=== PATIENT | male | born 1955 | race African-American/Black ===

== ENCOUNTER 2017-07-05 16:34 | Emergency (ER) | payer MEDICAID ==
[~2017-07-05] VITALS: Ht 188 cm; Wt 110.0 kg
[2017-07-05] MEDS ORDERED: LABETALOL 5MG/ML, 20ML IVPush ONE (17:00)
[2017-07-05] MEDS ORDERED: SODIUM CHLORIDE 0.9% 1,000ML IV ONE (17:00)
[2017-07-05] MEDS ORDERED: SODIUM CHLORIDE FLUSH 10ML SYR IVF ONE (17:00)
[2017-07-05] MEDS ORDERED: ONDANSETRON 2MG/ML, 2ML IVPush ONE (17:00)
[2017-07-05 17:13] LABS: HEMATOCRIT 44.9 % (39.2-51.8); HEMOGLOBIN 14.6 g/dL (13.7-18.0); WHITE BLOOD COUNT 7.5 x10^3/uL (3.4-10)
[2017-07-05] MEDS ORDERED: ONDANSETRON 2MG/ML, 2ML ONE (17:21)
[2017-07-05] MEDS ORDERED: LABETALOL 5MG/ML, 20ML ONE (17:21)
[2017-07-05] MEDS ORDERED: MORPHINE SULFATE 4 MG/ML, 1ML ONE ×2 (17:22→18:44)
[2017-07-05] MEDS: MORPHINE SULFATE 4 MG/ML, 1ML IVPush PRN ×2 (17:29→18:48)
[2017-07-05 17:47] LABS: BLOOD UREA NITROGEN 11 mg/dL (7-18)
[2017-07-05 17:52] LABS: ASPARTATE AMINO TRANSFERASE 23 U/L (15-37)
[2017-07-05 17:57] LABS: ANISOCYTOSIS 1+; HYPOCHROMIA 1+; POIKILOCYTOSIS 1+; POLYCHROMASIA 1+
[2017-07-05 20:11] VITALS: BP 171/91
== END 2017-07-05 20:14 | disposition home or self-care (01) ==
LOC: ED 20:08
DX: M51.16 Intervertebral disc disorders with radiculopathy, lumbar region (principal); I10 Essential (primary) hypertension; G89.29 Other chronic pain; F17.200 Nicotine dependence, unspecified, uncomplicated; Z91.14 Patient's other noncompliance with medication regimen; Z98.1 Arthrodesis status
CPT/HCPCS: 36415; 71020; 72110; 80053; 85025; 93005; 96361; 96374; 96375; 96376; 99285; J2405; J7030

== ENCOUNTER 2018-11-08 02:17 | Inpatient (IN) | payer MEDICAID ==
[~2018-11-08] VITALS: Ht 188 cm; Wt 124.6 kg
[2018-11-08] MEDS ORDERED: NITROGLYCERIN/D5W PMX 250 ML IV SCH (02:24)
[2018-11-08] MEDS ORDERED: NITROGLYCERIN/D5W PMX 250 ML ONE ×2 (02:27→02:31)
[2018-11-08] MEDS ORDERED: ALBUTEROL/IPRATROPIUM 2.5MG/0.5MG, 3 ML NPPB ONE (02:30)
[2018-11-08] MEDS ORDERED: FUROSEMIDE 40 MG/4 ML IVP ONE (02:30)
[2018-11-08] MEDS ORDERED: SODIUM CHLORIDE FLUSH 10ML SYR IVF ONE (02:30)
[2018-11-08] MEDS ORDERED: methylPREDNISolone SOD SUCC 125 MG/2 ML IVP ONE (02:30)
[2018-11-08] MEDS ORDERED: methylPREDNISolone SOD SUCC 125 MG/2 ML ONE (02:37)
--- NOTE | 2018-11-08 02:40 | NUR ---
HAL RN: LATE ENTRY. 63 Y/O MALE PRESENTS TO THE ER BY BLANKA FOR RESPIRATORY DISTRESS. PT REPORTS WORSENING SOB OVER THE PAST FEW DAYS. PT IS IN SEVERE DISTRESS, ONLY ABLE TO SPEAK 2 WORD SENTENCES, ACCESSORY MUSCLE USE PRESENT. PT REPORTS A HISTORY OF CHF AND ASTHMA. WHEEZING PRESENT THROUGHOUT ALL LUNG BOOGIE. SEVERE 4+ PITTING EDEMA NOTED TO EXTREMITIES BILATERALLY TO THE HIP LEVEL. ABD ROUNDED AND SWOLLEN, FACE EDEMETOUS ACCORDING TO PT. EMS ESTABLISHED IV AND ADMINISTERED O2 VIA NC @ 6 LPM. O2 SAT 98%. HISTORY LIMITED DUE TO PT'S DISTRESS. DR. BARBA AT BEDSIDE UPON PT ARRIVAL. MONITORING EQUIPMENT APPLIED. PT HYPERTENSIVE AT 188/142, TACHYCARDIC AT 110. SINUS TACH ON THE MONITOR WITH NO ECTOPY OR ST CHANGES PRESENT. RESPIRATORY AT BEDSIDE WELL. REPORT TO PRIMARY RNALIN.
[2018-11-08] MEDS ORDERED: FUROSEMIDE 40 MG/4 ML ONE (02:43)
[2018-11-08] MEDS ORDERED: ALBUTEROL/IPRATROPIUM 2.5MG/0.5MG, 3 ML ONE (02:46)
[2018-11-08] MEDS ORDERED: ALBUTEROL SULFATE 2.5 MG/3 ML ONE (02:46)
[2018-11-08 02:57] LABS: MEAN CORPUSCULAR HEMOGLOBIN 25.6 pg (27.5-34.5); MEAN CORPUSCULAR HGB CONC 31.1 g/dL (33.2-36.2); MEAN CORPUSCULAR VOLUME 82.3 fL (81-97); MEAN PLATELET VOLUME 7.8 fL (7.4-10.4); PLATELET COUNT 222 x10^3/uL (130-400); RED BLOOD COUNT 4.31 x10^6/uL (4.38-5.82); RED CELL DISTRIBUTION WIDTH 25.4 % (9.4-14.8)
[2018-11-08 03:02] LABS: ALANINE AMINOTRANSFERASE 31 U/L (12-78); ALBUMIN 2.9 g/dL (3.4-5.0); ANION GAP 7 mmol/L (5-15); CALCIUM 8.5 mg/dL (8.5-10.1); CHLORIDE 114 mmol/L (98-107); CREATININE 1.44 mg/dL (0.7-1.3)
--- NOTE | 2018-11-08 03:04 | NUR ---
NITRO TITRATED PER ORDER. PER MD LEAVE AT 100MCG/MIN AT THIS TIME.
[2018-11-08 03:06] LABS: ALKALINE PHOSPHATASE 92 U/L (45-117); BILIRUBIN,TOTAL 0.5 mg/dL (0.2-1.0); TOTAL PROTEIN 7.5 g/dL (6.4-8.2); TROPONIN I 0.057 ng/mL (0.000-0.045)
[2018-11-08] MEDS ORDERED: MORPHINE SULFATE 4 MG/ML, 1ML ONE ×2 (03:13→04:03)
[2018-11-08 03:16] LABS: MD YES
[2018-11-08 03:19] LABS: ANISOCYTOSIS 1+; EOS#(MANUAL) 0.13 x10^3/uL (0.0-0.4); EOS% (MANUAL) 2 % (1-7); LYMPH#(MANUAL) 1.13 x10^3/uL (1-3.4); LYMPHS% (MANUAL) 18 % (22-44); MONOS#(MANUAL) 0.19 x10^3/uL (0.3-2.7); MONOS% (MANUAL) 3 % (2-9); SEG#(MANUAL) 4.85 x10^3/uL (1.8-6.8); SEGS% (MANUAL) 77 % (42-75)
[2018-11-08 03:20] LABS: <PLATELET ESTIMATE> ADEQUATE; <PLT MORPHOLOGY> NORMAL PLT MORPH; HYPOCHROMIA 1+; OVALOCYTES 1+; POLYCHROMASIA 1+
[2018-11-08] MEDS ORDERED: ALBUTEROL SULFATE 2.5 MG/3 ML NPPB ONE ×2 (03:30→04:00)
[2018-11-08] MEDS ORDERED: MORPHINE SULFATE 4 MG/ML, 1ML IVPush ONE ×2 (03:30→04:30)
--- NOTE | 2018-11-08 03:41 | NUR ---
PT NOW MORE ALERT AND COMMUNICATING BETTER. PT NOW WITH 3-4 WORD SENTENCES. RESP DISTRESS HAS NOTABLY DECREASED HOWEVER AT THIS TIME IS MODERATE WITH THE ASSISTANCE OF BIPAP.
[2018-11-08 03:48] LABS: INTERNATIONAL NORMALIZED RATIO 1.26 (0.93-1.1); PROTHROMBIN TIME 13.2 Seconds (9.6-11.5)
--- NOTE | 2018-11-08 04:07 | NUR ---
MED REC ATTEMPTED. PT UNSURE OF NAMES OF MEDS.
[2018-11-08] MEDS ORDERED: NITROGLYCERIN 0.4 MG BOTTLE (25 TABS) SL PRN (05:30)
[2018-11-08] MEDS ORDERED: LABETALOL 5MG/ML, 20ML IVPush PRN (05:30)
[2018-11-08] MEDS ORDERED: DOCUSATE 100 MG CAPSULE PO PRN (05:30)
[2018-11-08] MEDS ORDERED: ONDANSETRON ODT 4 MG PO PRN (05:30)
[2018-11-08] MEDS ORDERED: POLYETHYLENE GLYCOL 17 GM PACKET PO PRN (05:30)
[2018-11-08] MEDS ORDERED: morphine SULFATE 10 MG/ML, 1ML IVPush PRN (05:30)
[2018-11-08] MEDS ORDERED: ONDANSETRON 2MG/ML, 2ML IVPush PRN (05:30)
[2018-11-08] MEDS ORDERED: BISACODYL 10 MG SUPP PR PRN (05:30)
[2018-11-08] MEDS ORDERED: GABAPENTIN 300 MG CAPSULE PO PRN (05:30)
[2018-11-08] MEDS ORDERED: PROMETHAZINE 25 MG/ML, 1ML IM PRN (05:30)
[2018-11-08] MEDS: HEPARIN 5,000 UNITS/ML, 1ML SQ SCH ×2 (05:39→15:15)
[2018-11-08] MEDS: OXYcodone IR 5MG TABLET PO PRN (05:39)
[2018-11-08] MEDS: hydrALAzine 20 MG/ML, 1ML IVPush PRN ×2 (05:49→11:02)
[2018-11-08] MEDS: ALBUTEROL/IPRATROPIUM 2.5MG/0.5MG, 3 ML NPPB SCH ×5 (06:00→23:01)
[2018-11-08] MEDS ORDERED: ASPIRIN 325 MG TABLET EC PO SCH (06:00)
[2018-11-08] MEDS ORDERED: ALBUTEROL/IPRATROPIUM 2.5MG/0.5MG, 3 ML NPPB PRN (06:00)
[2018-11-08 07:12] LABS: FREE T4 (FREE THYROXINE) 1.27 ng/dL (0.76-1.46); THYROID STIMULATING HORMONE 1.12 mIU/L (0.358-3.740)
[2018-11-08 07:28] LABS: HEMOGLOBIN A1C 5.6 % (4.2-6.3)
[2018-11-08] MEDS ORDERED: FUROSEMIDE 40 MG/4 ML IV SCH (07:30)
[2018-11-08 08:59] LABS: MICROSCOPIC AUTO
[2018-11-08 09:02] LABS: CULTURE INDICATED? YES
[2018-11-08] MEDS: FAMOTIDINE 20 MG/2 ML IVPush SCH ×2 (09:15→20:18)
[2018-11-08] MEDS: methylPREDNISolone SOD SUCC 125 MG/2 ML IVPush SCH ×3 (09:18→18:24)
[2018-11-08 09:25] LABS: TROPONIN I 0.045 ng/mL (0.000-0.045)
[2018-11-08 10:01] LABS: TROPONIN I 0.045 ng/mL (0.000-0.045)
[2018-11-08] MEDS: DOXYCYCLINE 100 MG in DEXTROSE 5% 250 ML IV SCH (12:50)
[2018-11-08] MEDS: CEFTRIAXONE PMX 2GM/50ML 50 ML IVPB SCH (12:50)
[2018-11-08 14:19] LABS: TROPONIN I 0.034 ng/mL (0.000-0.045)
[2018-11-08] MEDS: SPIRONOLACTONE 25 MG TABLET PO SCH (15:15)
[2018-11-08] MEDS: CARVEDILOL 6.25 MG TABLET PO SCH ×2 (15:16→18:25)
[2018-11-08 15:23] LABS: AMPHETAMINE SCREEN, URINE Negative (Negative); BARBITURATE SCREEN, URINE Negative (Negative); BENZODIAZEPINE SCREEN, URINE Negative (Negative); CANNABINOID SCREEN, URINE Negative (Negative); COCAINE SCREEN, URINE Negative (Negative); METHADONE SCREEN, URINE Negative (Negative); OPIATE SCREEN, URINE Positive (Negative)
[2018-11-08 19:09] LABS: RAPID INFLUENZA A Negative (Negative); RAPID INFLUENZA B Negative (Negative)
[2018-11-08] MEDS: FUROSEMIDE 40 MG/4 ML IV SCH (22:21)
[2018-11-09] MEDS: HEPARIN 5,000 UNITS/ML, 1ML SQ SCH ×4 (00:14→23:56)
[2018-11-09] MEDS: methylPREDNISolone SOD SUCC 125 MG/2 ML IVPush SCH ×3 (00:14→11:37)
[2018-11-09] MEDS: DOXYCYCLINE 100 MG in DEXTROSE 5% 250 ML IV SCH ×3 (00:15→23:56)
[2018-11-09] MEDS: ALBUTEROL/IPRATROPIUM 2.5MG/0.5MG, 3 ML NPPB SCH ×8 (02:00→19:13)
[2018-11-09 04:00] VITALS: BP 157/93
[2018-11-09 04:34] LABS: ALANINE AMINOTRANSFERASE 27 U/L (12-78); ALBUMIN 2.7 g/dL (3.4-5.0); ANION GAP 7 mmol/L (5-15); CALCIUM 8.4 mg/dL (8.5-10.1); CHLORIDE 111 mmol/L (98-107); CREATININE 1.55 mg/dL (0.7-1.3)
[2018-11-09 04:36] LABS: ALKALINE PHOSPHATASE 49 U/L (45-117); BILIRUBIN,TOTAL 0.4 mg/dL (0.2-1.0); CHOL/HDL RATIO 2.2; CHOLESTEROL, TOTAL 90 mg/dL (140-239); HDL CHOL % 46 % (26-37); HDL CHOLESTEROL (DIRECT) 41 mg/dL (40-60); LDL CHOLESTEROL,CALCULATED 40 mg/dL (54-169); TOTAL PROTEIN 6.9 g/dL (6.4-8.2); TRIGLYCERIDES 45 mg/dL (50-200); VLDL CHOLESTEROL 9 mg/dL (0-25)
[2018-11-09 04:42] LABS: MEAN CORPUSCULAR HEMOGLOBIN 25.5 pg (27.5-34.5); MEAN CORPUSCULAR HGB CONC 31.3 g/dL (33.2-36.2); MEAN CORPUSCULAR VOLUME 81.5 fL (81-97); MEAN PLATELET VOLUME 7.7 fL (7.4-10.4); PLATELET COUNT 227 x10^3/uL (130-400); RED BLOOD COUNT 4.14 x10^6/uL (4.38-5.82); RED CELL DISTRIBUTION WIDTH 25.1 % (9.4-14.8)
[2018-11-09] MEDS: CARVEDILOL 6.25 MG TABLET PO SCH ×2 (05:42→17:29)
[2018-11-09] MEDS: ASPIRIN 81 MG TABLET EC PO SCH (05:42)
[2018-11-09] MEDS: FUROSEMIDE 40 MG/4 ML IV SCH (05:42)
[2018-11-09 05:47] LABS: MD YES
[2018-11-09 05:48] LABS: ANISOCYTOSIS 1+; BAND#(MANUAL) 0.07 x10^3/uL; BANDS%(MANUAL) 1 % (0-7); HYPOCHROMIA 1+; LYMPH#(MANUAL) 0.49 x10^3/uL (1-3.4); LYMPHS% (MANUAL) 7 % (22-44); MONOS#(MANUAL) 0.14 x10^3/uL (0.3-2.7); MONOS% (MANUAL) 2 % (2-9); SEGS% (MANUAL) 90 % (42-75)
[2018-11-09 05:49] LABS: <PLATELET ESTIMATE> ADEQUATE; <PLT MORPHOLOGY> NORMAL PLT MORPH; OVALOCYTES 1+; POLYCHROMASIA 1+
[2018-11-09] MEDS: FAMOTIDINE 20 MG/2 ML IVPush SCH ×2 (08:52→20:29)
[2018-11-09] MEDS: SPIRONOLACTONE 25 MG TABLET PO SCH (08:53)
[2018-11-09] MEDS: CEFTRIAXONE PMX 2GM/50ML 50 ML IVPB SCH (09:40)
[2018-11-09] MEDS ORDERED: CARVEDILOL 6.25 MG TABLET PO ONE (10:00)
[2018-11-09] MEDS ORDERED: SODIUM CHLORIDE 0.9% IV SCH (10:00)
[2018-11-09] MEDS ORDERED: FUROSEMIDE IV SCH (10:00)
[2018-11-09] MEDS: ACETAMINOPHEN 325 MG TABLET PO PRN (11:37)
[2018-11-09] MEDS: methylPREDNISolone SOD SUCC 40 MG/ML IVPush SCH (17:28)
[2018-11-09] MEDS: FUROSEMIDE 100 MG in SODIUM CHLORIDE 0.9% 90 ML IV SCH (19:41)
[2018-11-09] MEDS: OXYcodone IR 5MG TABLET PO PRN (20:28)
[2018-11-10] MEDS: methylPREDNISolone SOD SUCC 40 MG/ML IVPush SCH ×3 (00:07→12:15)
[2018-11-10 04:00] VITALS: BP 127/88
[2018-11-10] MEDS: FUROSEMIDE 100 MG in SODIUM CHLORIDE 0.9% 90 ML IV SCH (04:07)
[2018-11-10 04:38] LABS: ALBUMIN 2.7 g/dL (3.4-5.0); CALCIUM 8.7 mg/dL (8.5-10.1); CHLORIDE 109 mmol/L (98-107)
[2018-11-10 04:46] LABS: ALANINE AMINOTRANSFERASE 24 U/L (12-78); ALKALINE PHOSPHATASE 70 U/L (45-117); ANION GAP 8 mmol/L (5-15); BILIRUBIN,TOTAL 0.3 mg/dL (0.2-1.0); CREATININE 1.73 mg/dL (0.7-1.3); TOTAL PROTEIN 6.9 g/dL (6.4-8.2)
[2018-11-10 05:01] LABS: MEAN CORPUSCULAR HEMOGLOBIN 25.2 pg (27.5-34.5); MEAN CORPUSCULAR HGB CONC 30.8 g/dL (33.2-36.2); MEAN CORPUSCULAR VOLUME 82.1 fL (81-97); MEAN PLATELET VOLUME 7.8 fL (7.4-10.4); PLATELET COUNT 207 x10^3/uL (130-400); RED BLOOD COUNT 3.98 x10^6/uL (4.38-5.82); RED CELL DISTRIBUTION WIDTH 24.7 % (9.4-14.8)
[2018-11-10 05:35] LABS: MD YES
[2018-11-10 05:37] LABS: ANISOCYTOSIS 1+; HYPOCHROMIA 1+; LYMPH#(MANUAL) 0.34 x10^3/uL (1-3.4); LYMPHS% (MANUAL) 5 % (22-44); MONOS#(MANUAL) 0.27 x10^3/uL (0.3-2.7); MONOS% (MANUAL) 4 % (2-9); POLYCHROMASIA 1+; SEGS% (MANUAL) 91 % (42-75)
[2018-11-10 05:38] LABS: <PLATELET ESTIMATE> ADEQUATE; <PLT MORPHOLOGY> NORMAL PLT MORPH; OVALOCYTES 1+
[2018-11-10] MEDS: ASPIRIN 81 MG TABLET EC PO SCH (06:27)
[2018-11-10] MEDS: CARVEDILOL 6.25 MG TABLET PO SCH ×2 (06:27→18:29)
[2018-11-10] MEDS: ALBUTEROL/IPRATROPIUM 2.5MG/0.5MG, 3 ML NPPB SCH ×4 (06:51→20:00)
[2018-11-10] MEDS: HEPARIN 5,000 UNITS/ML, 1ML SQ SCH ×2 (07:52→16:55)
[2018-11-10] MEDS: SPIRONOLACTONE 25 MG TABLET PO SCH (09:17)
[2018-11-10] MEDS: CEFTRIAXONE PMX 2GM/50ML 50 ML IVPB SCH (09:17)
[2018-11-10] MEDS: FAMOTIDINE 20 MG TABLET PO SCH ×2 (09:17→20:59)
[2018-11-10] MEDS: FUROSEMIDE 40 MG/4 ML IV SCH ×2 (09:18→18:29)
[2018-11-10 11:40] VITALS: BP 127/81
[2018-11-10] MEDS: DOXYCYCLINE 100 MG in DEXTROSE 5% 250 ML IV SCH (12:16)
[2018-11-10 12:56] VITALS: BP 124/79
[2018-11-10] MEDS: OXYcodone IR 5MG TABLET PO PRN (14:57)
[2018-11-10 18:31] VITALS: BP 142/93
[2018-11-10 20:58] VITALS: BP 129/91
[2018-11-11] MEDS: DOXYCYCLINE 100 MG in DEXTROSE 5% 250 ML IV SCH ×2 (00:05→12:33)
[2018-11-11] MEDS: HEPARIN 5,000 UNITS/ML, 1ML SQ SCH ×3 (00:05→15:29)
[2018-11-11 00:13] VITALS: BP 125/79
[2018-11-11 05:39] LABS: ANION GAP 10 mmol/L (5-15); CALCIUM 8.4 mg/dL (8.5-10.1); CHLORIDE 108 mmol/L (98-107); CREATININE 1.93 mg/dL (0.7-1.3)
[2018-11-11 05:44] VITALS: BP 145/83
[2018-11-11 05:44] LABS: % IRON SATURATION 4 % (20-55); IRON LEVEL 15 mcg/dL (65-175); TOTAL IRON BINDING CAPACITY 396 mcg/dL (250-450)
[2018-11-11] MEDS: CARVEDILOL 6.25 MG TABLET PO SCH ×2 (05:45→17:51)
[2018-11-11] MEDS: ASPIRIN 81 MG TABLET EC PO SCH (05:45)
[2018-11-11] MEDS: ALBUTEROL/IPRATROPIUM 2.5MG/0.5MG, 3 ML NPPB SCH ×4 (07:00→22:40)
[2018-11-11 08:22] VITALS: BP 149/86
[2018-11-11] MEDS: FUROSEMIDE 40 MG/4 ML IV SCH ×3 (08:30→20:54)
[2018-11-11] MEDS: FAMOTIDINE 20 MG TABLET PO SCH ×2 (09:24→20:53)
[2018-11-11] MEDS: CEFTRIAXONE PMX 2GM/50ML 50 ML IVPB SCH (09:25)
[2018-11-11 13:37] VITALS: BP 142/84
[2018-11-11 18:27] VITALS: BP 132/87
[2018-11-11 20:51] VITALS: BP 123/83
[2018-11-11 22:26] LABS: CREATININE,URINE RANDOM 26.7 mg/dL
[2018-11-12] MEDS: DOXYCYCLINE 100 MG in DEXTROSE 5% 250 ML IV SCH ×2 (00:09→13:17)
[2018-11-12] MEDS: HEPARIN 5,000 UNITS/ML, 1ML SQ SCH ×3 (00:09→16:19)
[2018-11-12 01:28] VITALS: BP 131/88
[2018-11-12 05:07] VITALS: BP 149/99
[2018-11-12] MEDS: FUROSEMIDE 40 MG/4 ML IV SCH ×3 (05:08→22:11)
[2018-11-12] MEDS: ASPIRIN 81 MG TABLET EC PO SCH (05:08)
[2018-11-12] MEDS: CARVEDILOL 6.25 MG TABLET PO SCH ×2 (05:08→18:04)
[2018-11-12 05:35] LABS: ANION GAP 7 mmol/L (5-15); CALCIUM 8.5 mg/dL (8.5-10.1); CHLORIDE 110 mmol/L (98-107)
[2018-11-12 07:21] VITALS: BP 108/70
[2018-11-12] MEDS: FAMOTIDINE 20 MG TABLET PO SCH (08:34)
[2018-11-12] MEDS: SPIRONOLACTONE 25 MG TABLET PO SCH (08:34)
[2018-11-12] MEDS: ALBUTEROL/IPRATROPIUM 2.5MG/0.5MG, 3 ML NPPB SCH ×4 (08:45→20:55)
[2018-11-12] MEDS: CEFTRIAXONE PMX 2GM/50ML 50 ML IVPB SCH (11:44)
[2018-11-12 13:22] VITALS: BP 122/78
[2018-11-12] MEDS: IRON SUCROSE COMPLEX 100MG/5ML IV SCH (15:12)
[2018-11-12 20:04] VITALS: BP 156/102
[2018-11-12 22:25] VITALS: BP 138/79
[2018-11-13] MEDS: DOXYCYCLINE 100 MG in DEXTROSE 5% 250 ML IV SCH ×2 (00:26→13:52)
[2018-11-13] MEDS: HEPARIN 5,000 UNITS/ML, 1ML SQ SCH ×3 (00:26→14:23)
[2018-11-13 01:05] VITALS: BP 132/83
[2018-11-13] MEDS: FUROSEMIDE 40 MG/4 ML IV SCH ×3 (06:06→21:20)
[2018-11-13] MEDS: ASPIRIN 81 MG TABLET EC PO SCH (06:06)
[2018-11-13] MEDS: CARVEDILOL 6.25 MG TABLET PO SCH ×2 (06:06→16:50)
[2018-11-13 06:40] VITALS: BP 140/87
[2018-11-13] MEDS: ALBUTEROL/IPRATROPIUM 2.5MG/0.5MG, 3 ML NPPB SCH ×4 (07:00→18:55)
[2018-11-13] MEDS: SPIRONOLACTONE 25 MG TABLET PO SCH (08:39)
[2018-11-13] MEDS: FAMOTIDINE 20 MG TABLET PO SCH (08:39)
[2018-11-13] MEDS: CEFTRIAXONE PMX 2GM/50ML 50 ML IVPB SCH (08:48)
[2018-11-13] MEDS ORDERED: METOLAZONE 2.5 MG TABLET PO ONE (10:30)
[2018-11-13 13:02] VITALS: BP 144/95
[2018-11-13] MEDS: IRON SUCROSE COMPLEX 100MG/5ML IV SCH (13:52)
[2018-11-13 20:40] VITALS: BP 145/87
[2018-11-13] MEDS: OXYcodone IR 5MG TABLET PO PRN (21:25)
[2018-11-14] MEDS: DOXYCYCLINE 100 MG in DEXTROSE 5% 250 ML IV SCH ×2 (00:48→16:39)
[2018-11-14] MEDS: HEPARIN 5,000 UNITS/ML, 1ML SQ SCH ×3 (00:48→16:38)
[2018-11-14 02:18] VITALS: BP 135/89
[2018-11-14 06:15] LABS: ANION GAP 10 mmol/L (5-15); CALCIUM 8.4 mg/dL (8.5-10.1); CHLORIDE 105 mmol/L (98-107); CREATININE 1.37 mg/dL (0.7-1.3)
[2018-11-14] MEDS: CARVEDILOL 6.25 MG TABLET PO SCH ×2 (06:37→17:12)
[2018-11-14] MEDS: ASPIRIN 81 MG TABLET EC PO SCH (06:37)
[2018-11-14] MEDS: FUROSEMIDE 40 MG/4 ML IV SCH ×3 (06:38→20:04)
[2018-11-14] MEDS: ALBUTEROL/IPRATROPIUM 2.5MG/0.5MG, 3 ML NPPB SCH ×4 (07:00→20:00)
[2018-11-14 07:02] VITALS: BP 145/97
[2018-11-14] MEDS: SPIRONOLACTONE 25 MG TABLET PO SCH (08:35)
[2018-11-14] MEDS: FAMOTIDINE 20 MG TABLET PO SCH ×2 (08:35→20:04)
[2018-11-14] MEDS: CEFTRIAXONE PMX 2GM/50ML 50 ML IVPB SCH (10:12)
[2018-11-14 12:47] VITALS: BP 117/79
[2018-11-14] MEDS: LISINOPRIL 5 MG TABLET PO SCH (14:45)
[2018-11-14] MEDS: IRON SUCROSE COMPLEX 100MG/5ML IV SCH (16:42)
[2018-11-14 18:54] VITALS: BP 146/78
[2018-11-14 20:08] VITALS: BP 120/87
[2018-11-15 00:10] VITALS: BP 113/65
[2018-11-15] MEDS: HEPARIN 5,000 UNITS/ML, 1ML SQ SCH ×3 (00:44→18:21)
[2018-11-15] MEDS: DOXYCYCLINE 100 MG in DEXTROSE 5% 250 ML IV SCH ×2 (00:44→12:55)
[2018-11-15] MEDS: ACETAMINOPHEN 325 MG TABLET PO PRN ×4 (02:06→21:17)
[2018-11-15] MEDS: ASPIRIN 81 MG TABLET EC PO SCH (05:34)
[2018-11-15] MEDS: CARVEDILOL 6.25 MG TABLET PO SCH ×2 (05:34→18:21)
[2018-11-15 06:01] LABS: ANION GAP 6 mmol/L (5-15); CHLORIDE 104 mmol/L (98-107); CREATININE 1.18 mg/dL (0.7-1.3)
[2018-11-15 06:24] VITALS: BP 113/64
[2018-11-15] MEDS: ALBUTEROL/IPRATROPIUM 2.5MG/0.5MG, 3 ML NPPB SCH ×4 (06:52→20:00)
[2018-11-15] MEDS: FUROSEMIDE 40 MG/4 ML IV SCH ×2 (10:18→21:02)
[2018-11-15] MEDS: IRON SUCROSE COMPLEX 100MG/5ML IV SCH (10:19)
[2018-11-15] MEDS: LISINOPRIL 5 MG TABLET PO SCH (10:19)
[2018-11-15] MEDS: FAMOTIDINE 20 MG TABLET PO SCH ×2 (10:19→21:02)
[2018-11-15] MEDS: SPIRONOLACTONE 25 MG TABLET PO SCH (10:19)
[2018-11-15] MEDS: CEFTRIAXONE PMX 2GM/50ML 50 ML IVPB SCH (10:47)
[2018-11-15 12:01] VITALS: BP 109/64
[2018-11-15 19:50] VITALS: BP 111/66
[2018-11-16] MEDS: DOXYCYCLINE 100 MG in DEXTROSE 5% 250 ML IV SCH ×3 (00:26→23:33)
[2018-11-16] MEDS: HEPARIN 5,000 UNITS/ML, 1ML SQ SCH ×4 (00:26→23:33)
[2018-11-16 01:51] VITALS: BP 122/71
[2018-11-16] MEDS: ASPIRIN 81 MG TABLET EC PO SCH (05:40)
[2018-11-16] MEDS: CARVEDILOL 6.25 MG TABLET PO SCH ×2 (05:41→17:08)
[2018-11-16] MEDS: ALBUTEROL/IPRATROPIUM 2.5MG/0.5MG, 3 ML NPPB SCH ×4 (07:02→19:40)
[2018-11-16 07:03] VITALS: BP 131/78
[2018-11-16] MEDS: IRON SUCROSE COMPLEX 100MG/5ML IV SCH (09:09)
[2018-11-16] MEDS: LISINOPRIL 5 MG TABLET PO SCH (09:09)
[2018-11-16] MEDS: FAMOTIDINE 20 MG TABLET PO SCH ×2 (09:09→22:10)
[2018-11-16] MEDS: FUROSEMIDE 40 MG/4 ML IV SCH (09:09)
[2018-11-16] MEDS: SPIRONOLACTONE 25 MG TABLET PO SCH (09:09)
[2018-11-16] MEDS: CEFTRIAXONE PMX 2GM/50ML 50 ML IVPB SCH (09:21)
[2018-11-16] MEDS: ACYCLOVIR 800 MG TABLET PO SCH ×4 (11:12→22:10)
--- NOTE | 2018-11-16 11:17 | NUR ---
11/16/18--green sheet placed in room for ambulation in hallway with fww tid, up for all meals tid; exercises to be completed. WENDY Escudero notified. will follow. Addendum: 11/16/18 at 1120 by Fernando Nelson PT Amended: Links added.
--- NOTE | 2018-11-16 11:20 | NUR ---
11/16/18--green sheet in room. ambulation with fww tid with director staffing, up for all meals tid, exercises once daily.
[2018-11-16 12:41] VITALS: BP 127/77
[2018-11-16] MEDS: METOLAZONE 2.5 MG TABLET PO SCH (17:08)
[2018-11-16 19:50] VITALS: BP 116/60
[2018-11-16] MEDS: FUROSEMIDE 40 MG TABLET PO SCH (22:10)
[2018-11-17 00:55] VITALS: BP 122/75
[2018-11-17 05:36] LABS: ANION GAP 4 mmol/L (5-15); CALCIUM 8.9 mg/dL (8.5-10.1); CHLORIDE 102 mmol/L (98-107)
[2018-11-17 05:39] LABS: CREATININE 1.15 mg/dL (0.7-1.3)
[2018-11-17] MEDS: ACYCLOVIR 800 MG TABLET PO SCH ×5 (05:44→22:24)
[2018-11-17] MEDS: ASPIRIN 81 MG TABLET EC PO SCH (05:44)
[2018-11-17] MEDS: CARVEDILOL 6.25 MG TABLET PO SCH ×2 (05:45→18:12)
[2018-11-17 07:05] VITALS: BP 98/59
[2018-11-17] MEDS: METOLAZONE 2.5 MG TABLET PO SCH ×2 (07:30→10:30)
[2018-11-17] MEDS: ALBUTEROL/IPRATROPIUM 2.5MG/0.5MG, 3 ML NPPB SCH ×4 (08:10→19:15)
[2018-11-17] MEDS: HEPARIN 5,000 UNITS/ML, 1ML SQ SCH ×2 (10:27→18:13)
[2018-11-17] MEDS: CEFTRIAXONE PMX 2GM/50ML 50 ML IVPB SCH (10:27)
[2018-11-17] MEDS: FAMOTIDINE 20 MG TABLET PO SCH ×2 (10:28→22:24)
[2018-11-17] MEDS: LISINOPRIL 5 MG TABLET PO SCH (10:29)
[2018-11-17] MEDS: FUROSEMIDE 40 MG TABLET PO SCH ×2 (10:29→22:24)
[2018-11-17] MEDS: SPIRONOLACTONE 25 MG TABLET PO SCH (10:32)
[2018-11-17] MEDS: DOXYCYCLINE 100 MG in DEXTROSE 5% 250 ML IV SCH (12:00)
[2018-11-17 13:05] VITALS: BP 114/68
[2018-11-17 19:24] VITALS: BP 123/73
[2018-11-17] MEDS: DOXYCYCLINE 100MG TABLET PO SCH (22:24)
[2018-11-18] MEDS: HEPARIN 5,000 UNITS/ML, 1ML SQ SCH ×3 (01:36→17:41)
[2018-11-18 01:37] VITALS: BP 112/69
[2018-11-18 05:29] VITALS: BP 148/89
[2018-11-18] MEDS: ASPIRIN 81 MG TABLET EC PO SCH (05:30)
[2018-11-18] MEDS: CARVEDILOL 6.25 MG TABLET PO SCH ×2 (05:30→17:41)
[2018-11-18] MEDS: ACYCLOVIR 800 MG TABLET PO SCH ×5 (06:13→20:30)
[2018-11-18 06:55] VITALS: BP 126/82
[2018-11-18] MEDS: ALBUTEROL/IPRATROPIUM 2.5MG/0.5MG, 3 ML NPPB SCH ×4 (07:00→18:39)
[2018-11-18] MEDS: FUROSEMIDE 40 MG TABLET PO SCH ×2 (08:20→20:30)
[2018-11-18] MEDS: LISINOPRIL 5 MG TABLET PO SCH (08:20)
[2018-11-18] MEDS: DOXYCYCLINE 100MG TABLET PO SCH ×2 (08:20→20:30)
[2018-11-18] MEDS: SPIRONOLACTONE 25 MG TABLET PO SCH (08:20)
[2018-11-18] MEDS: FAMOTIDINE 20 MG TABLET PO SCH ×2 (08:20→20:30)
[2018-11-18] MEDS: METOLAZONE 2.5 MG TABLET PO SCH (08:21)
[2018-11-18] MEDS: CEFTRIAXONE PMX 2GM/50ML 50 ML IVPB SCH (09:45)
[2018-11-18 12:08] VITALS: BP 109/75
[2018-11-18] MEDS ORDERED: ERGOCALCIFEROL 50,000 UNIT CAPSULE PO SCH (13:30)
[2018-11-18 20:38] VITALS: BP 148/84
[2018-11-19] MEDS: HEPARIN 5,000 UNITS/ML, 1ML SQ SCH ×3 (01:51→17:56)
[2018-11-19 04:08] VITALS: BP 118/76
[2018-11-19 05:58] LABS: MEAN CORPUSCULAR HEMOGLOBIN 25.4 pg (27.5-34.5); MEAN CORPUSCULAR HGB CONC 31.2 g/dL (33.2-36.2); MEAN CORPUSCULAR VOLUME 81.2 fL (81-97); MEAN PLATELET VOLUME 7.3 fL (7.4-10.4); PLATELET COUNT 182 x10^3/uL (130-400); RED BLOOD COUNT 4.09 x10^6/uL (4.38-5.82); RED CELL DISTRIBUTION WIDTH 23.9 % (9.4-14.8)
[2018-11-19 06:04] LABS: CHLORIDE 104 mmol/L (98-107)
[2018-11-19 06:08] LABS: ANION GAP 7 mmol/L (5-15); CALCIUM 8.5 mg/dL (8.5-10.1); CREATININE 1.15 mg/dL (0.7-1.3)
[2018-11-19 06:33] LABS: BASOPHILS # (AUTO) 0.01 x10^3/uL (0-0.1); BASOPHILS % (AUTO) 0 % (0-1); EOSINOPHILS # (AUTO) 0.11 x10^3/uL (0-0.4); EOSINOPHILS % (AUTO) 2 % (1-7); LYMPHOCYTES % (AUTO) 25 % (22-44); MD SCAN; MONOCYTES # (AUTO) 0.62 x10^3/uL (0.2-0.8); MONOCYTES % (AUTO) 13 % (2-9); NEUTROPHILS # (AUTO) 2.86 x10^3/uL (1.8-6.8); NEUTROPHILS % (AUTO) 60 % (42-75)
[2018-11-19] MEDS: CARVEDILOL 6.25 MG TABLET PO SCH ×2 (06:48→17:55)
[2018-11-19] MEDS: ASPIRIN 81 MG TABLET EC PO SCH (06:48)
[2018-11-19] MEDS: ACYCLOVIR 800 MG TABLET PO SCH ×5 (06:49→20:48)
[2018-11-19] MEDS: ALBUTEROL/IPRATROPIUM 2.5MG/0.5MG, 3 ML NPPB SCH ×3 (07:40→21:00)
[2018-11-19 08:20] VITALS: BP 123/77
[2018-11-19] MEDS ORDERED: ALBUTEROL/IPRATROPIUM 2.5MG/0.5MG, 3 ML NPPB SCH (09:00)
[2018-11-19] MEDS: CEFTRIAXONE PMX 2GM/50ML 50 ML IVPB SCH (09:47)
[2018-11-19] MEDS: FAMOTIDINE 20 MG TABLET PO SCH ×2 (09:50→20:48)
[2018-11-19] MEDS: FUROSEMIDE 40 MG TABLET PO SCH ×2 (09:50→17:55)
[2018-11-19] MEDS: DOXYCYCLINE 100MG TABLET PO SCH ×2 (09:50→20:48)
[2018-11-19] MEDS: SPIRONOLACTONE 25 MG TABLET PO SCH (09:50)
[2018-11-19] MEDS: LISINOPRIL 5 MG TABLET PO SCH (09:51)
[2018-11-19 13:19] VITALS: BP 131/78
[2018-11-19 17:53] VITALS: BP 144/93
[2018-11-19 20:04] VITALS: BP 132/84
[2018-11-20 01:53] VITALS: BP 133/91
[2018-11-20] MEDS: HEPARIN 5,000 UNITS/ML, 1ML SQ SCH ×3 (03:32→20:28)
[2018-11-20] MEDS: CARVEDILOL 6.25 MG TABLET PO SCH ×2 (05:42→17:23)
[2018-11-20] MEDS: ASPIRIN 81 MG TABLET EC PO SCH (05:43)
[2018-11-20] MEDS: ACYCLOVIR 800 MG TABLET PO SCH ×5 (05:43→20:28)
[2018-11-20 06:10] LABS: ALBUMIN 2.6 g/dL (3.4-5.0); ANION GAP 4 mmol/L (5-15); CALCIUM 8.9 mg/dL (8.5-10.1); CHLORIDE 106 mmol/L (98-107)
[2018-11-20 06:16] LABS: ALANINE AMINOTRANSFERASE 40 U/L (12-78); ALKALINE PHOSPHATASE 60 U/L (45-117); BILIRUBIN,TOTAL 0.4 mg/dL (0.2-1.0); CREATININE 1.09 mg/dL (0.7-1.3); TOTAL PROTEIN 6.5 g/dL (6.4-8.2)
[2018-11-20 06:48] VITALS: BP 117/75
[2018-11-20] MEDS: ALBUTEROL/IPRATROPIUM 2.5MG/0.5MG, 3 ML NPPB SCH ×2 (07:19→21:00)
[2018-11-20] MEDS: LISINOPRIL 5 MG TABLET PO SCH (08:43)
[2018-11-20] MEDS: FAMOTIDINE 20 MG TABLET PO SCH ×2 (08:43→20:28)
[2018-11-20] MEDS: DOXYCYCLINE 100MG TABLET PO SCH ×2 (08:43→20:28)
[2018-11-20] MEDS: SPIRONOLACTONE 25 MG TABLET PO SCH (08:43)
[2018-11-20] MEDS: FUROSEMIDE 40 MG TABLET PO SCH ×2 (08:48→17:24)
[2018-11-20 13:40] VITALS: BP 119/72
[2018-11-20 19:51] VITALS: BP 123/77
[2018-11-21 02:30] VITALS: BP 140/84
[2018-11-21] MEDS: ACYCLOVIR 800 MG TABLET PO SCH ×5 (05:22→21:36)
[2018-11-21] MEDS: HEPARIN 5,000 UNITS/ML, 1ML SQ SCH ×3 (05:23→21:36)
[2018-11-21] MEDS: ASPIRIN 81 MG TABLET EC PO SCH (05:23)
[2018-11-21] MEDS: CARVEDILOL 6.25 MG TABLET PO SCH ×2 (05:24→18:12)
[2018-11-21 06:26] LABS: ALBUMIN 2.7 g/dL (3.4-5.0); ANION GAP 5 mmol/L (5-15); CALCIUM 8.6 mg/dL (8.5-10.1); CHLORIDE 108 mmol/L (98-107); CREATININE 1.11 mg/dL (0.7-1.3)
[2018-11-21 06:38] LABS: MEAN CORPUSCULAR HEMOGLOBIN 26.1 pg (27.5-34.5); MEAN CORPUSCULAR HGB CONC 31.9 g/dL (33.2-36.2); MEAN CORPUSCULAR VOLUME 81.9 fL (81-97); MEAN PLATELET VOLUME 7.8 fL (7.4-10.4); PLATELET COUNT 177 x10^3/uL (130-400); RED BLOOD COUNT 4.09 x10^6/uL (4.38-5.82); RED CELL DISTRIBUTION WIDTH 23.2 % (9.4-14.8)
[2018-11-21 07:31] LABS: MD YES
[2018-11-21 07:35] LABS: BASOS#(MANUAL) 0.05 x10^3/uL (0-0.1); BASOS% (MANUAL) 1 % (0-1); EOS#(MANUAL) 0.18 x10^3/uL (0.0-0.4); EOS% (MANUAL) 4 % (1-7); LYMPHS% (MANUAL) 26 % (22-44); MONOS#(MANUAL) 0.46 x10^3/uL (0.3-2.7); MONOS% (MANUAL) 10 % (2-9); REACTIVE LYMPHS # (MANUAL) 0.09 x10^3/uL (0-0); REACTIVE LYMPHS % (MANUAL) 2 % (0-0); SEG#(MANUAL) 2.62 x10^3/uL (1.8-6.8); SEGS% (MANUAL) 57 % (42-75)
[2018-11-21] MEDS: ALBUTEROL/IPRATROPIUM 2.5MG/0.5MG, 3 ML NPPB SCH ×2 (07:35→21:00)
[2018-11-21 07:37] LABS: ANISOCYTOSIS 1+; HYPOCHROMIA 1+; MICROCYTOSIS 1+
[2018-11-21 07:38] LABS: <PLATELET ESTIMATE> ADEQUATE; <PLT MORPHOLOGY> NORMAL PLT MORPH; OVALOCYTES 2+
[2018-11-21] MEDS: DOXYCYCLINE 100MG TABLET PO SCH (08:45)
[2018-11-21] MEDS: FUROSEMIDE 40 MG TABLET PO SCH ×2 (08:45→15:54)
[2018-11-21] MEDS: FAMOTIDINE 20 MG TABLET PO SCH ×2 (08:45→21:36)
[2018-11-21] MEDS: SPIRONOLACTONE 25 MG TABLET PO SCH (08:45)
[2018-11-21 08:50] VITALS: BP 129/78
[2018-11-21] MEDS: LISINOPRIL 5 MG TABLET PO SCH (08:59)
[2018-11-21 15:53] VITALS: BP 133/86
[2018-11-21 18:11] VITALS: BP 147/84
[2018-11-21 20:19] VITALS: BP 129/82
[2018-11-22 01:20] VITALS: BP 134/85
[2018-11-22 05:13] LABS: ALBUMIN 2.8 g/dL (3.4-5.0); ANION GAP 5 mmol/L (5-15); CALCIUM 8.9 mg/dL (8.5-10.1); CHLORIDE 109 mmol/L (98-107)
[2018-11-22 05:14] LABS: CREATININE 1.17 mg/dL (0.7-1.3)
[2018-11-22] MEDS: HEPARIN 5,000 UNITS/ML, 1ML SQ SCH ×2 (05:49→14:42)
[2018-11-22] MEDS: ASPIRIN 81 MG TABLET EC PO SCH (05:50)
[2018-11-22] MEDS: CARVEDILOL 6.25 MG TABLET PO SCH ×2 (05:50→18:27)
[2018-11-22] MEDS: ACYCLOVIR 800 MG TABLET PO SCH ×4 (05:50→18:27)
[2018-11-22] MEDS: ALBUTEROL/IPRATROPIUM 2.5MG/0.5MG, 3 ML NPPB SCH (06:53)
[2018-11-22 09:10] VITALS: BP 114/64
[2018-11-22] MEDS: FAMOTIDINE 20 MG TABLET PO SCH (09:23)
[2018-11-22] MEDS: FUROSEMIDE 40 MG TABLET PO SCH (09:24)
[2018-11-22] MEDS: SPIRONOLACTONE 25 MG TABLET PO SCH (09:24)
[2018-11-22] MEDS: LISINOPRIL 5 MG TABLET PO SCH (09:24)
[2018-11-22 13:58] VITALS: BP 136/83
[2018-11-22] MEDS ORDERED: CARV6.2512 PO (14:55)
[2018-11-22] MEDS ORDERED: ASPI81TA45 PO (14:55)
[2018-11-22] MEDS ORDERED: ERGO500017 PO (14:55)
[2018-11-22] MEDS ORDERED: SPIR25TA PO (14:55)
[2018-11-22] MEDS ORDERED: FURO40TA6 PO (14:55)
[2018-11-22] MEDS ORDERED: LISI5TAB7 PO (14:55)
[2018-11-23] MEDS ORDERED: FUROSEMIDE 40 MG TABLET PO SCH (08:00)
== END 2018-11-22 19:40 | disposition home or self-care (01) | DRG 682 ==
LOC: ED 04:27 → EDIP 04:43 → CCU 05:05 → ICU 11:08 → 5SO 11-10 11:26 → 3NE 11-22 09:07
PROVIDERS: ADMIT Internal Medicine; ATTEND Internal Medicine
PROC: 5A09357 Assistance with Respiratory Ventilation, Less than 24 Consecutive Hours, Continuous Positive Airway Pressure (ICD-10-PCS; 2018-11-08)
PROC: 5A09357 Assistance with Respiratory Ventilation, Less than 24 Consecutive Hours, Continuous Positive Airway Pressure (ICD-10-PCS; 2018-11-13)
PROC: 05HY33Z Insertion of Infusion Device into Upper Vein, Percutaneous Approach (ICD-10-PCS; principal; 2018-11-14)
PROC: 5A09357 Assistance with Respiratory Ventilation, Less than 24 Consecutive Hours, Continuous Positive Airway Pressure (ICD-10-PCS; 2018-11-14)
PROC: 5A09357 Assistance with Respiratory Ventilation, Less than 24 Consecutive Hours, Continuous Positive Airway Pressure (ICD-10-PCS; 2018-11-15)
PROC: 5A09357 Assistance with Respiratory Ventilation, Less than 24 Consecutive Hours, Continuous Positive Airway Pressure (ICD-10-PCS; 2018-11-16)
PROC: 5A09357 Assistance with Respiratory Ventilation, Less than 24 Consecutive Hours, Continuous Positive Airway Pressure (ICD-10-PCS; 2018-11-17)
PROC: 5A09357 Assistance with Respiratory Ventilation, Less than 24 Consecutive Hours, Continuous Positive Airway Pressure (ICD-10-PCS; 2018-11-19)
PROC: 5A09357 Assistance with Respiratory Ventilation, Less than 24 Consecutive Hours, Continuous Positive Airway Pressure (ICD-10-PCS; 2018-11-20)
DX: N17.0 Acute kidney failure with tubular necrosis (principal); I50.23 Acute on chronic systolic (congestive) heart failure; J96.21 Acute and chronic respiratory failure with hypoxia; I13.0 Hypertensive heart and chronic kidney disease with heart failure and stage 1 through stage 4 chronic kidney disease, or unspecified chronic kidney disease; E44.0 Moderate protein-calorie malnutrition; E87.2 Acidosis; I16.1 Hypertensive emergency; J44.1 Chronic obstructive pulmonary disease with (acute) exacerbation; Z68.42 Body mass index [BMI] 45.0-49.9, adult; B02.9 Zoster without complications; D64.9 Anemia, unspecified; E11.22 Type 2 diabetes mellitus with diabetic chronic kidney disease; Z68.35 Body mass index [BMI] 35.0-35.9, adult; E66.01 Morbid (severe) obesity due to excess calories; E83.51 Hypocalcemia; F15.90 Other stimulant use, unspecified, uncomplicated; F17.210 Nicotine dependence, cigarettes, uncomplicated; G47.30 Sleep apnea, unspecified; I07.1 Rheumatic tricuspid insufficiency; I25.5 Ischemic cardiomyopathy; I27.20 Pulmonary hypertension, unspecified; N18.9 Chronic kidney disease, unspecified; N28.1 Cyst of kidney, acquired; N50.89 Other specified disorders of the male genital organs; Z79.82 Long term (current) use of aspirin; Z79.899 Other long term (current) drug therapy; Z91.19 Patient's noncompliance with other medical treatment and regimen; G89.29 Other chronic pain; M54.9 Dorsalgia, unspecified; Z59.0 Homelessness
CPT/HCPCS: 36415; 36600; 87400; J3490; J7620; 36573; 71045; 74176; 76770; 80048; 80053; 80061; 80307; 81001; 82040; 82306; 82570; 82728; 82803; 83036; 83540; 83550; 83605; 83735; 83880; 83970; 84100; 84300; 84439; 84443; 84484; 84540; 85025; 85610; 85730; 87081; 87086; 90656; 93306; 93970; 94640; 94660; G0378; J0696; J1644; J1756; J1940; J7060; C1751; J0360; J2920; J2930

== ENCOUNTER 2019-01-18 16:46 | Inpatient (IN) | payer MEDICAID ==
[~2019-01-18] VITALS: Ht 188 cm; Wt 105.8 kg
[~2019-01-18 16:46] MED LIST: ASPI81TA45 PO; CARV6.2512 PO; ERGO500017 PO; FURO40TA6 PO; LISI5TAB7 PO; SPIR25TA PO
--- NOTE | 2019-01-18 17:18 | NUR ---
ERP DR. VASQUEZ AWARE OF PT STATUS.
--- NOTE | 2019-01-18 17:23 | NUR ---
PT HAD FOUL GREEN DIARRHEA IN BED. JT CARE PERFORMED. SHEETS CHANGED. STOOL SAMPLE COLLECTED, LABELED, AND WALKED TO LAB BY NONA MANNING.
--- NOTE | 2019-01-18 17:23 | NUR ---
ERP DR. VASQUEZ AT BEDSIDE.
[2019-01-18] MEDS ORDERED: ACETAMINOPHEN 500 MG TABLET ONE (17:28)
[2019-01-18] MEDS ORDERED: ACETAMINOPHEN 500 MG TABLET PO ONE (17:30)
[2019-01-18] MEDS ORDERED: SODIUM CHLORIDE 0.9% 1,000ML IVBOLUS ONE ×2 (17:30→19:00)
[2019-01-18] MEDS ORDERED: SODIUM CHLORIDE FLUSH 10ML SYR IVF ONE (17:30)
--- NOTE | 2019-01-18 18:02 | NUR ---
mult. delays for xray
--- NOTE | 2019-01-18 18:15 | NUR ---
PT PROVIDED W/ TYLENOL 1 GM. PT TEMP REMAINS ELEVATED. ERP NOTIFIED.
[2019-01-18 18:17] LABS: BASOPHILS % (AUTO) 0 % (0-1); EOSINOPHILS % (AUTO) 0 % (1-7); LYMPHOCYTES # (AUTO) 0.28 x10^3/uL (1-3.4); LYMPHOCYTES % (AUTO) 3 % (22-44); MD NO; MEAN CORPUSCULAR HEMOGLOBIN 28.3 pg (27.5-34.5); MEAN CORPUSCULAR HGB CONC 32.9 g/dL (33.2-36.2); MEAN CORPUSCULAR VOLUME 85.8 fL (81-97); MEAN PLATELET VOLUME 7.6 fL (7.4-10.4); MONOCYTES # (AUTO) 0.39 x10^3/uL (0.2-0.8); MONOCYTES % (AUTO) 4 % (2-9); NEUTROPHILS # (AUTO) 9.19 x10^3/uL (1.8-6.8); NEUTROPHILS % (AUTO) 93 % (42-75); PLATELET COUNT 165 x10^3/uL (130-400); RED BLOOD COUNT 4.93 x10^6/uL (4.38-5.82); RED CELL DISTRIBUTION WIDTH 18.9 % (9.4-14.8)
[2019-01-18] MEDS ORDERED: IBUPROFEN 200 MG TABLET ONE (18:17)
--- NOTE | 2019-01-18 18:23 | NUR ---
PT AWARE OF NEED FOR UA.
[2019-01-18 18:26] LABS: ALBUMIN 3.7 g/dL (3.4-5.0); ANION GAP 11 mmol/L (5-15); CALCIUM 9.9 mg/dL (8.5-10.1); CHLORIDE 99 mmol/L (98-107)
[2019-01-18 18:29] LABS: ALANINE AMINOTRANSFERASE 37 U/L (12-78); ALKALINE PHOSPHATASE 91 U/L (45-117); BILIRUBIN,TOTAL 1.2 mg/dL (0.2-1.0); CREATININE 1.61 mg/dL (0.7-1.3); TOTAL PROTEIN 8.7 g/dL (6.4-8.2)
[2019-01-18] MEDS ORDERED: IBUPROFEN 200 MG TABLET PO ONE (18:30)
[2019-01-18] MEDS ORDERED: PIPERACILLIN/TAZO/PMX 3.375GM 50 ML IV ONE (19:00)
--- NOTE | 2019-01-18 19:05 | NUR ---
BEDSIDE REPORT GIVEN TO RADHA HANLEY RN.
--- NOTE | 2019-01-18 19:06 | NUR ---
REPORT RECEIVED FROM JOHNNY NGUYEN.
--- NOTE | 2019-01-18 19:06 | NUR ---
PT TEMP EVALUATED AND REMAINS HIGH AFTER 1 GM TYLENOL AND 400 MG MOTRIN. ERP NOTIFIED.
[2019-01-18 19:22] LABS: CLOSTRIDIUM DIFFICILE ANTIGEN NEGATIVE; CLOSTRIDIUM DIFFICILE TOXIN NEGATIVE (Negative)
--- NOTE | 2019-01-18 19:30 | NUR ---
PT'S TEMP IS STILL 102.4. EDMD NOTIFIED AND DISCUSSES ABOUT SEPSIS CRITERIA.
--- NOTE | 2019-01-18 19:35 | NUR ---
PT IN CT WITH THIS RN.
[2019-01-18] MEDS ORDERED: OMNIPAQUE 350 MG/ML, 100ML BOTTLE ONE (19:51)
--- NOTE | 2019-01-18 20:57 | NUR ---
HUNT CATH'S USING STERILE TECHNIQUE BY HOSPITALIST'S VERBAL ORDER. UA SENT. PT TOLERATED WELL.
[2019-01-18 21:05] LABS: CULTURE INDICATED? YES; MICROSCOPIC INDICATED
[2019-01-18 21:14] LABS: TROPONIN I 0.127 ng/mL (0.000-0.045)
[2019-01-18 21:15] LABS: AMPHETAMINE SCREEN, URINE Positive (Negative); BARBITURATE SCREEN, URINE Negative (Negative); BENZODIAZEPINE SCREEN, URINE Negative (Negative); CANNABINOID SCREEN, URINE Negative (Negative); COCAINE SCREEN, URINE Negative (Negative); METHADONE SCREEN, URINE Negative (Negative); OPIATE SCREEN, URINE Negative (Negative)
--- NOTE | 2019-01-18 21:24 | NUR ---
REPORT GIVEN TO THIEN NGUYEN. ALL QUESTIONS ANSWERED.
[2019-01-18 22:08] VITALS: BP 132/84
[2019-01-18] MEDS: SODIUM CHLORIDE 0.9% 1,000 ML IV SCH (22:44)
[2019-01-19 00:23] VITALS: BP 125/70
[2019-01-19 06:01] LABS: CALCIUM 8.2 mg/dL (8.5-10.1); CHLORIDE 107 mmol/L (98-107)
[2019-01-19 06:07] LABS: ANION GAP 8 mmol/L (5-15); CREATINE KINASE, TOTAL 155 U/L (39-308); CREATININE 1.66 mg/dL (0.7-1.3); TROPONIN I 0.097 ng/mL (0.000-0.045)
[2019-01-19 06:12] LABS: MEAN CORPUSCULAR HEMOGLOBIN 27.6 pg (27.5-34.5); MEAN CORPUSCULAR HGB CONC 31.9 g/dL (33.2-36.2); MEAN CORPUSCULAR VOLUME 86.6 fL (81-97); RED BLOOD COUNT 4.41 x10^6/uL (4.38-5.82)
[2019-01-19 06:30] LABS: MD YES; MEAN PLATELET VOLUME 7.8 fL (7.4-10.4); PLATELET COUNT 114 x10^3/uL (130-400)
[2019-01-19 06:32] LABS: ANISOCYTOSIS 1+; BAND#(MANUAL) 0.98 x10^3/uL; BANDS%(MANUAL) 12 % (0-7); HYPOCHROMIA 1+; LYMPH#(MANUAL) 0.41 x10^3/uL (1-3.4); LYMPHS% (MANUAL) 5 % (22-44); METAMYELOCYTES# (MANUAL) 0.16 x10^3/uL (0-0); METAMYELOCYTES% (MANUAL) 2 % (0-1); MICROCYTOSIS 1+; MONOS#(MANUAL) 1.15 x10^3/uL (0.3-2.7); MONOS% (MANUAL) 14 % (2-9); SEG#(MANUAL) 5.49 x10^3/uL (1.8-6.8); SEGS% (MANUAL) 67 % (42-75)
[2019-01-19 06:33] LABS: <PLATELET ESTIMATE> DECREASED; <PLT MORPHOLOGY> NORMAL PLT MORPH; OVALOCYTES 1+; PMNS WITH VACUOLES 1+
[2019-01-19 06:46] LABS: INTERNATIONAL NORMALIZED RATIO 1.4 (0.93-1.1); PROTHROMBIN TIME 14.5 Seconds (9.6-11.5)
[2019-01-19 07:51] VITALS: BP 123/80
[2019-01-19] MEDS ORDERED: VANCOMYCIN PER PHARMACY MC PRN (09:30)
[2019-01-19] MEDS: FUROSEMIDE 40 MG TABLET PO SCH (09:37)
[2019-01-19] MEDS: SPIRONOLACTONE 25 MG TABLET PO SCH (09:37)
[2019-01-19] MEDS: SODIUM CHLORIDE 0.9% 1,000 ML IV SCH (10:19)
[2019-01-19] MEDS: PIPERACILLIN/TAZO/PMX 3.375GM 50 ML IV SCH ×2 (10:19→18:30)
[2019-01-19] MEDS ORDERED: PHARMACOKINETIC MONITORING MC PRN (10:30)
[2019-01-19] MEDS ORDERED: PHARMACOKINETIC CONSULTATION MC ONE (10:30)
[2019-01-19] MEDS: VANCOMYCIN 2,000 MG in SODIUM CHLORIDE 0.9% 500 ML IV SCH (12:10)
[2019-01-19] MEDS: ACETAMINOPHEN 325 MG TABLET PO PRN ×2 (12:29→19:22)
[2019-01-19 15:39] VITALS: BP 114/72
[2019-01-19 19:26] VITALS: BP 122/71
[2019-01-20 00:58] VITALS: BP 114/72
[2019-01-20] MEDS: ACETAMINOPHEN 325 MG TABLET PO PRN ×3 (02:44→16:57)
[2019-01-20] MEDS: PIPERACILLIN/TAZO/PMX 3.375GM 50 ML IV SCH ×3 (02:46→18:47)
[2019-01-20 04:22] LABS: BASOPHILS % (AUTO) 0 % (0-1); EOSINOPHILS # (AUTO) 0.02 x10^3/uL (0-0.4); EOSINOPHILS % (AUTO) 0 % (1-7); LYMPHOCYTES # (AUTO) 0.35 x10^3/uL (1-3.4); LYMPHOCYTES % (AUTO) 5 % (22-44); MD NO; MEAN CORPUSCULAR HEMOGLOBIN 28.4 pg (27.5-34.5); MEAN CORPUSCULAR HGB CONC 32.6 g/dL (33.2-36.2); MEAN CORPUSCULAR VOLUME 87.2 fL (81-97); MONOCYTES # (AUTO) 0.48 x10^3/uL (0.2-0.8); MONOCYTES % (AUTO) 6 % (2-9); NEUTROPHILS # (AUTO) 6.66 x10^3/uL (1.8-6.8); NEUTROPHILS % (AUTO) 89 % (42-75); PLATELET COUNT 110 x10^3/uL (130-400); RED BLOOD COUNT 3.92 x10^6/uL (4.38-5.82)
[2019-01-20 04:31] LABS: ANION GAP 8 mmol/L (5-15); CALCIUM 8.3 mg/dL (8.5-10.1); CHLORIDE 107 mmol/L (98-107); CREATININE 1.59 mg/dL (0.7-1.3)
[2019-01-20] MEDS: SODIUM CHLORIDE 0.9% 1,000 ML IV SCH (04:45)
[2019-01-20 07:49] VITALS: BP 114/74
[2019-01-20] MEDS: SPIRONOLACTONE 25 MG TABLET PO SCH (10:11)
[2019-01-20] MEDS: FUROSEMIDE 40 MG TABLET PO SCH (10:12)
[2019-01-20] MEDS: VANCOMYCIN 2,000 MG in SODIUM CHLORIDE 0.9% 500 ML IV SCH (12:07)
[2019-01-20 14:18] VITALS: BP 112/71
[2019-01-20 18:26] VITALS: BP 109/72
[2019-01-21] MEDS: ACETAMINOPHEN 325 MG TABLET PO PRN ×3 (02:15→15:51)
[2019-01-21] MEDS: PIPERACILLIN/TAZO/PMX 3.375GM 50 ML IV SCH ×3 (02:16→18:24)
[2019-01-21 02:23] VITALS: BP 130/76
[2019-01-21 06:46] VITALS: BP 116/70
[2019-01-21 08:25] LABS: MEAN CORPUSCULAR HEMOGLOBIN 27.4 pg (27.5-34.5); MEAN CORPUSCULAR HGB CONC 31.7 g/dL (33.2-36.2); MEAN CORPUSCULAR VOLUME 86.5 fL (81-97); MEAN PLATELET VOLUME 7.6 fL (7.4-10.4); PLATELET COUNT 143 x10^3/uL (130-400); RED BLOOD COUNT 4.09 x10^6/uL (4.38-5.82)
[2019-01-21 08:31] LABS: ANION GAP 7 mmol/L (5-15); CALCIUM 8.6 mg/dL (8.5-10.1); CHLORIDE 109 mmol/L (98-107); CREATININE 1.31 mg/dL (0.7-1.3)
[2019-01-21 08:34] LABS: CREATINE KINASE, TOTAL 19 U/L (39-308)
[2019-01-21 08:44] LABS: BASOPHILS # (AUTO) 0.01 x10^3/uL (0-0.1); BASOPHILS % (AUTO) 0 % (0-1); EOSINOPHILS # (AUTO) 0.04 x10^3/uL (0-0.4); EOSINOPHILS % (AUTO) 0 % (1-7); LYMPHOCYTES # (AUTO) 0.48 x10^3/uL (1-3.4); LYMPHOCYTES % (AUTO) 4 % (22-44); MD SCAN; MONOCYTES # (AUTO) 0.75 x10^3/uL (0.2-0.8); MONOCYTES % (AUTO) 7 % (2-9); NEUTROPHILS # (AUTO) 9.72 x10^3/uL (1.8-6.8); NEUTROPHILS % (AUTO) 88 % (42-75)
[2019-01-21] MEDS: SPIRONOLACTONE 25 MG TABLET PO SCH (08:58)
[2019-01-21] MEDS: FUROSEMIDE 40 MG TABLET PO SCH (08:58)
[2019-01-21 12:30] VITALS: BP 131/72
[2019-01-21 20:11] VITALS: BP 147/82
[2019-01-22] MEDS: PIPERACILLIN/TAZO/PMX 3.375GM 50 ML IV SCH ×2 (02:34→09:42)
[2019-01-22] MEDS: ACETAMINOPHEN 325 MG TABLET PO PRN ×3 (02:34→21:21)
[2019-01-22 02:38] VITALS: BP 158/76
[2019-01-22 05:17] LABS: MEAN CORPUSCULAR HEMOGLOBIN 27.6 pg (27.5-34.5); MEAN CORPUSCULAR HGB CONC 31.5 g/dL (33.2-36.2); MEAN CORPUSCULAR VOLUME 87.6 fL (81-97); MEAN PLATELET VOLUME 7.5 fL (7.4-10.4); PLATELET COUNT 167 x10^3/uL (130-400); RED BLOOD COUNT 4.11 x10^6/uL (4.38-5.82); RED CELL DISTRIBUTION WIDTH 18.9 % (9.4-14.8)
[2019-01-22 05:29] LABS: ANION GAP 7 mmol/L (5-15); CALCIUM 8.7 mg/dL (8.5-10.1); CHLORIDE 108 mmol/L (98-107)
[2019-01-22 05:52] LABS: BASOPHILS # (AUTO) 0.02 x10^3/uL (0-0.1); BASOPHILS % (AUTO) 0 % (0-1); EOSINOPHILS # (AUTO) 0.05 x10^3/uL (0-0.4); EOSINOPHILS % (AUTO) 1 % (1-7); LYMPHOCYTES # (AUTO) 0.47 x10^3/uL (1-3.4); LYMPHOCYTES % (AUTO) 4 % (22-44); MD SCAN; MONOCYTES # (AUTO) 0.87 x10^3/uL (0.2-0.8); MONOCYTES % (AUTO) 8 % (2-9); NEUTROPHILS # (AUTO) 9.53 x10^3/uL (1.8-6.8); NEUTROPHILS % (AUTO) 87 % (42-75)
[2019-01-22 08:13] VITALS: BP 149/82
[2019-01-22] MEDS: FUROSEMIDE 40 MG TABLET PO SCH (09:42)
[2019-01-22] MEDS: SPIRONOLACTONE 25 MG TABLET PO SCH (09:42)
[2019-01-22 12:13] VITALS: BP 103/63
[2019-01-22 19:48] VITALS: BP 116/68
[2019-01-22] MEDS: AMOXICILLIN/CLAV 875-125MG TABLET PO SCH (21:21)
[2019-01-23 03:42] VITALS: BP 155/81
[2019-01-23 06:38] LABS: BASOPHILS % (AUTO) 0 % (0-1); EOSINOPHILS # (AUTO) 0.21 x10^3/uL (0-0.4); EOSINOPHILS % (AUTO) 3 % (1-7); HCT (SEDRATE) 35.1 % (39.2-51.8); LYMPHOCYTES # (AUTO) 0.62 x10^3/uL (1-3.4); LYMPHOCYTES % (AUTO) 8 % (22-44); MD NO; MEAN CORPUSCULAR HEMOGLOBIN 28.2 pg (27.5-34.5); MEAN CORPUSCULAR HGB CONC 32.8 g/dL (33.2-36.2); MEAN PLATELET VOLUME 6.8 fL (7.4-10.4); MONOCYTES # (AUTO) 0.72 x10^3/uL (0.2-0.8); MONOCYTES % (AUTO) 9 % (2-9); NEUTROPHILS # (AUTO) 6.27 x10^3/uL (1.8-6.8); NEUTROPHILS % (AUTO) 80 % (42-75); PLATELET COUNT 177 x10^3/uL (130-400); RED BLOOD COUNT 4.08 x10^6/uL (4.38-5.82); RED CELL DISTRIBUTION WIDTH 19.2 % (9.4-14.8)
[2019-01-23 06:46] LABS: ANION GAP 5 mmol/L (5-15); CALCIUM 8.8 mg/dL (8.5-10.1); CHLORIDE 108 mmol/L (98-107)
[2019-01-23 06:54] LABS: CREATININE 1.03 mg/dL (0.7-1.3)
[2019-01-23 07:28] VITALS: BP 168/90
[2019-01-23] MEDS: AMOXICILLIN/CLAV 875-125MG TABLET PO SCH ×2 (08:39→20:44)
[2019-01-23] MEDS: FUROSEMIDE 40 MG TABLET PO SCH (08:40)
[2019-01-23] MEDS: SPIRONOLACTONE 25 MG TABLET PO SCH (08:40)
[2019-01-23 13:13] VITALS: BP 160/92
[2019-01-23 20:22] VITALS: BP 146/85
[2019-01-23] MEDS: ACETAMINOPHEN 325 MG TABLET PO PRN (20:44)
[2019-01-24 02:40] VITALS: BP 155/84
[2019-01-24 06:51] LABS: BASOPHILS # (AUTO) 0.01 x10^3/uL (0-0.1); BASOPHILS % (AUTO) 0 % (0-1); EOSINOPHILS # (AUTO) 0.21 x10^3/uL (0-0.4); EOSINOPHILS % (AUTO) 3 % (1-7); LYMPHOCYTES # (AUTO) 0.68 x10^3/uL (1-3.4); LYMPHOCYTES % (AUTO) 8 % (22-44); MD NO; MEAN CORPUSCULAR HEMOGLOBIN 28.2 pg (27.5-34.5); MEAN CORPUSCULAR HGB CONC 32.6 g/dL (33.2-36.2); MEAN CORPUSCULAR VOLUME 86.6 fL (81-97); MEAN PLATELET VOLUME 6.9 fL (7.4-10.4); MONOCYTES % (AUTO) 6 % (2-9); NEUTROPHILS # (AUTO) 6.74 x10^3/uL (1.8-6.8); NEUTROPHILS % (AUTO) 83 % (42-75); PLATELET COUNT 242 x10^3/uL (130-400); RED BLOOD COUNT 3.93 x10^6/uL (4.38-5.82); RED CELL DISTRIBUTION WIDTH 18.6 % (9.4-14.8)
[2019-01-24 07:01] LABS: CHLORIDE 109 mmol/L (98-107)
[2019-01-24 07:07] LABS: ANION GAP 7 mmol/L (5-15); CREATININE 0.94 mg/dL (0.7-1.3)
[2019-01-24 07:36] VITALS: BP 157/82
[2019-01-24] MEDS: AMOXICILLIN/CLAV 875-125MG TABLET PO SCH (10:19)
[2019-01-24] MEDS: FUROSEMIDE 40 MG TABLET PO SCH (10:20)
[2019-01-24] MEDS: SPIRONOLACTONE 25 MG TABLET PO SCH (10:20)
[2019-01-24] MEDS ORDERED: ERGO500017 PO (11:12)
[2019-01-24] MEDS ORDERED: CARV6.2512 PO (11:12)
[2019-01-24] MEDS ORDERED: SPIR25TA PO (11:12)
[2019-01-24] MEDS ORDERED: LISI5TAB7 PO (11:12)
[2019-01-24] MEDS ORDERED: FURO40TA6 PO (11:12)
[2019-01-24] MEDS ORDERED: AMOX1TAB12 PO (11:12)
[2019-01-24] MEDS ORDERED: ASPI81TA45 PO (11:12)
[2019-01-24] MEDS: ACETAMINOPHEN 325 MG TABLET PO PRN (11:28)
== END 2019-01-24 15:30 | disposition home or self-care (01) | DRG 872 ==
LOC: ED 19:55 → EDIP 20:49 → 4WST 22:22 → DCLOUNGE 01-24 15:23
PROVIDERS: ADMIT Internal Medicine; ATTEND Internal Medicine
DX: A41.9 Sepsis, unspecified organism (principal); I50.22 Chronic systolic (congestive) heart failure; L03.116 Cellulitis of left lower limb; N17.9 Acute kidney failure, unspecified; F15.90 Other stimulant use, unspecified, uncomplicated; F17.200 Nicotine dependence, unspecified, uncomplicated; I11.0 Hypertensive heart disease with heart failure; J45.909 Unspecified asthma, uncomplicated; N28.1 Cyst of kidney, acquired; N40.0 Benign prostatic hyperplasia without lower urinary tract symptoms; R65.20 Severe sepsis without septic shock; Z59.0 Homelessness
CPT/HCPCS: 36415; 51702; 71045; 74177; 78315; 80048; 80053; 80307; 81001; 82550; 83605; 83735; 83880; 84145; 84484; 85025; 85610; 85651; 85730; 86140; 87040; 87046; 87086; 87147; 87181; 87324; 87427; 89055; 93005; 93308; G0378; J2543; J3370; Q9967; A9503; C9898; J7030; J7040

== ENCOUNTER 2019-01-27 19:57 | Inpatient (IN) | payer MEDICAID ==
[~2019-01-27] VITALS: Ht 188 cm; Wt 107.9 kg
[~2019-01-27 19:57] MED LIST changes: +AMOX1TAB12 PO
--- NOTE | 2019-01-27 20:20 | NUR ---
MING. REPORT FROM EMS. PT C/O BILATERAL LEG SWELLING/PAIN. HX OF CHF/KIDNEY FAILURE. PT WAS DC HERE FOR A FEW DAYS AGO. PT DENIES N/V/D AT THIS TIME. BILATERAL DORSALIS PEDIS PULSE WEAK. PT'S AOX4. RESPS EVEN AND UNLABORED. ALL MONITORS IN PLACE. CALL LIGHT WITHIN REACH. EKG DONE BY EMT AT BEDSIDE. PA AT BEDSIDE TO ASSESS.
[2019-01-27 20:30] LABS: BASOPHILS # (AUTO) 0.01 x10^3/uL (0-0.1); BASOPHILS % (AUTO) 0 % (0-1); EOSINOPHILS # (AUTO) 0.17 x10^3/uL (0-0.4); EOSINOPHILS % (AUTO) 1 % (1-7); LYMPHOCYTES # (AUTO) 1.12 x10^3/uL (1-3.4); LYMPHOCYTES % (AUTO) 7 % (22-44); MD NO; MEAN CORPUSCULAR HEMOGLOBIN 27.3 pg (27.5-34.5); MEAN CORPUSCULAR HGB CONC 31.4 g/dL (33.2-36.2); MEAN PLATELET VOLUME 6.2 fL (7.4-10.4); MONOCYTES # (AUTO) 0.38 x10^3/uL (0.2-0.8); MONOCYTES % (AUTO) 3 % (2-9); NEUTROPHILS # (AUTO) 13.69 x10^3/uL (1.8-6.8); NEUTROPHILS % (AUTO) 89 % (42-75); PLATELET COUNT 453 x10^3/uL (130-400); RED BLOOD COUNT 4.29 x10^6/uL (4.38-5.82); RED CELL DISTRIBUTION WIDTH 18.5 % (9.4-14.8)
[2019-01-27 20:39] LABS: ANION GAP 8 mmol/L (5-15); CHLORIDE 104 mmol/L (98-107); CREATININE 1.61 mg/dL (0.7-1.3)
--- NOTE | 2019-01-27 21:01 | NUR ---
PT IN XRAY NOW.
[2019-01-27] MEDS ORDERED: VANCOMYCIN PER PHARMACY MC PRN (21:30)
[2019-01-27] MEDS ORDERED: FUROSEMIDE 40 MG/4 ML IV ONE (21:30)
[2019-01-27] MEDS ORDERED: VANCOMYCIN 2,400 MG in SODIUM CHLORIDE 0.9% 500 ML IV ONE (21:30)
[2019-01-27] MEDS ORDERED: CEFAZOLIN PMX 1GM/50ML 50 ML IVPB ONE (21:30)
[2019-01-27] MEDS ORDERED: FUROSEMIDE 20 MG/2 ML ONE (21:44)
[2019-01-27] MEDS ORDERED: CEFAZOLIN PMX 1GM/50ML 50 ML ONE (21:45)
--- NOTE | 2019-01-27 22:09 | NUR ---
PT MEDICATED PER EMAR. PT TOLERATED WELL.
--- NOTE | 2019-01-27 22:25 | NUR ---
REPORT GIVEN TO DANNI NGUYEN. ALL QUESTIONS ANSWERED.
[2019-01-27] MEDS ORDERED: ERGOCALCIFEROL 50,000 UNIT CAPSULE PO SCH (22:30)
[2019-01-27] MEDS ORDERED: hydrALAzine 20 MG/ML, 1ML IVPush PRN (22:30)
[2019-01-27] MEDS ORDERED: POLYETHYLENE GLYCOL 17 GM PACKET PO PRN (22:30)
[2019-01-27] MEDS ORDERED: ACETAMINOPHEN 325 MG TABLET PO PRN (22:30)
[2019-01-27 23:02] VITALS: BP 150/78
[2019-01-27] MEDS: HEPARIN 5,000 UNITS/ML, 1ML SQ SCH (23:33)
[2019-01-28] MEDS: PIPERACILLIN/TAZO/PMX 3.375GM 50 ML IV SCH ×3 (00:16→16:23)
[2019-01-28] MEDS: LINEZOLID PMX 600MG/300ML 300 ML IV SCH ×2 (00:54→13:24)
[2019-01-28 01:31] VITALS: BP 131/74
[2019-01-28 05:33] LABS: BASOPHILS # (AUTO) 0.01 x10^3/uL (0-0.1); BASOPHILS % (AUTO) 0 % (0-1); EOSINOPHILS # (AUTO) 0.11 x10^3/uL (0-0.4); EOSINOPHILS % (AUTO) 1 % (1-7); LYMPHOCYTES # (AUTO) 0.81 x10^3/uL (1-3.4); LYMPHOCYTES % (AUTO) 8 % (22-44); MD NO; MEAN CORPUSCULAR HEMOGLOBIN 28.1 pg (27.5-34.5); MEAN CORPUSCULAR HGB CONC 32.5 g/dL (33.2-36.2); MEAN CORPUSCULAR VOLUME 86.4 fL (81-97); MEAN PLATELET VOLUME 6.1 fL (7.4-10.4); MONOCYTES # (AUTO) 0.25 x10^3/uL (0.2-0.8); MONOCYTES % (AUTO) 2 % (2-9); NEUTROPHILS # (AUTO) 9.42 x10^3/uL (1.8-6.8); NEUTROPHILS % (AUTO) 89 % (42-75); PLATELET COUNT 328 x10^3/uL (130-400); RED BLOOD COUNT 3.69 x10^6/uL (4.38-5.82); RED CELL DISTRIBUTION WIDTH 18.4 % (9.4-14.8)
[2019-01-28 05:47] LABS: ALBUMIN 2.2 g/dL (3.4-5.0); ANION GAP 7 mmol/L (5-15); CALCIUM 8.6 mg/dL (8.5-10.1); CHLORIDE 110 mmol/L (98-107)
[2019-01-28 05:51] LABS: ALANINE AMINOTRANSFERASE 19 U/L (12-78); ALKALINE PHOSPHATASE 73 U/L (45-117); BILIRUBIN,TOTAL 0.5 mg/dL (0.2-1.0); CREATININE 1.31 mg/dL (0.7-1.3); TOTAL PROTEIN 7.2 g/dL (6.4-8.2)
[2019-01-28 06:01] VITALS: BP 136/61
[2019-01-28] MEDS: ASPIRIN 81 MG TABLET EC PO SCH (06:03)
[2019-01-28] MEDS: CARVEDILOL 12.5 MG TABLET PO SCH ×2 (06:03→17:55)
[2019-01-28 07:50] VITALS: BP 110/66
[2019-01-28] MEDS: HEPARIN 5,000 UNITS/ML, 1ML SQ SCH ×2 (08:31→15:30)
[2019-01-28] MEDS: LISINOPRIL 10 MG TABLET PO SCH (08:31)
[2019-01-28 13:10] VITALS: BP 102/58
[2019-01-28 19:48] VITALS: BP 112/66
[2019-01-29] MEDS: HEPARIN 5,000 UNITS/ML, 1ML SQ SCH ×3 (00:33→16:30)
[2019-01-29] MEDS: PIPERACILLIN/TAZO/PMX 3.375GM 50 ML IV SCH ×3 (00:33→17:58)
[2019-01-29 01:07] VITALS: BP 157/81
[2019-01-29] MEDS: LINEZOLID PMX 600MG/300ML 300 ML IV SCH ×2 (01:17→12:02)
[2019-01-29] MEDS: ASPIRIN 81 MG TABLET EC PO SCH (05:35)
[2019-01-29] MEDS: CARVEDILOL 12.5 MG TABLET PO SCH ×2 (05:36→19:55)
[2019-01-29 07:58] VITALS: BP 137/69
[2019-01-29] MEDS: LISINOPRIL 10 MG TABLET PO SCH (08:05)
[2019-01-29 13:01] LABS: ANION GAP 6 mmol/L (5-15); CALCIUM 8.7 mg/dL (8.5-10.1); CHLORIDE 110 mmol/L (98-107); CREATININE 1.23 mg/dL (0.7-1.3)
[2019-01-29 13:24] VITALS: BP 139/74
[2019-01-29 19:13] VITALS: BP 132/65
[2019-01-30] MEDS: PIPERACILLIN/TAZO/PMX 3.375GM 50 ML IV SCH ×3 (00:07→17:13)
[2019-01-30] MEDS: HEPARIN 5,000 UNITS/ML, 1ML SQ SCH ×3 (00:07→17:13)
[2019-01-30] MEDS: LINEZOLID PMX 600MG/300ML 300 ML IV SCH ×2 (01:03→12:51)
[2019-01-30 01:30] VITALS: BP 158/81
[2019-01-30] MEDS: ASPIRIN 81 MG TABLET EC PO SCH (05:47)
[2019-01-30] MEDS: CARVEDILOL 12.5 MG TABLET PO SCH ×2 (05:47→17:14)
[2019-01-30 06:02] LABS: BASOPHILS # (AUTO) 0.03 x10^3/uL (0-0.1); BASOPHILS % (AUTO) 0 % (0-1); EOSINOPHILS # (AUTO) 0.25 x10^3/uL (0-0.4); EOSINOPHILS % (AUTO) 4 % (1-7); LYMPHOCYTES # (AUTO) 0.96 x10^3/uL (1-3.4); LYMPHOCYTES % (AUTO) 14 % (22-44); MD NO; MEAN CORPUSCULAR HEMOGLOBIN 28.6 pg (27.5-34.5); MEAN CORPUSCULAR HGB CONC 32.7 g/dL (33.2-36.2); MEAN CORPUSCULAR VOLUME 87.3 fL (81-97); MEAN PLATELET VOLUME 6.1 fL (7.4-10.4); MONOCYTES # (AUTO) 0.58 x10^3/uL (0.2-0.8); MONOCYTES % (AUTO) 8 % (2-9); NEUTROPHILS # (AUTO) 5.22 x10^3/uL (1.8-6.8); NEUTROPHILS % (AUTO) 74 % (42-75); PLATELET COUNT 354 x10^3/uL (130-400); RED BLOOD COUNT 3.47 x10^6/uL (4.38-5.82)
[2019-01-30 06:03] LABS: ANION GAP 5 mmol/L (5-15); CALCIUM 8.9 mg/dL (8.5-10.1); CHLORIDE 112 mmol/L (98-107); CREATININE 1.16 mg/dL (0.7-1.3)
[2019-01-30 07:28] VITALS: BP 152/79
[2019-01-30] MEDS: LISINOPRIL 10 MG TABLET PO SCH (08:27)
[2019-01-30 13:31] VITALS: BP 142/79
[2019-01-30 21:04] VITALS: BP 150/74
[2019-01-31 01:13] VITALS: BP 171/90
[2019-01-31] MEDS: HEPARIN 5,000 UNITS/ML, 1ML SQ SCH ×3 (01:17→17:39)
[2019-01-31] MEDS: PIPERACILLIN/TAZO/PMX 3.375GM 50 ML IV SCH ×3 (01:18→17:39)
[2019-01-31 02:28] VITALS: BP 173/81
[2019-01-31] MEDS: LINEZOLID PMX 600MG/300ML 300 ML IV SCH ×2 (02:30→14:34)
[2019-01-31] MEDS ORDERED: hydrALAzine 20 MG/ML, 1ML IV ONE (03:00)
[2019-01-31 05:46] LABS: ANION GAP 4 mmol/L (5-15); CALCIUM 9.3 mg/dL (8.5-10.1); CHLORIDE 112 mmol/L (98-107); CREATININE 1.13 mg/dL (0.7-1.3)
[2019-01-31 05:53] VITALS: BP 159/86
[2019-01-31] MEDS: CARVEDILOL 12.5 MG TABLET PO SCH ×2 (05:54→17:39)
[2019-01-31] MEDS: ASPIRIN 81 MG TABLET EC PO SCH (05:55)
[2019-01-31 07:29] VITALS: BP 157/82
[2019-01-31] MEDS: LISINOPRIL 10 MG TABLET PO SCH (10:10)
[2019-01-31 13:29] VITALS: BP 154/79
[2019-01-31] MEDS ORDERED: MIDODRINE 5 MG TABLET PO SCH (16:00)
[2019-01-31] MEDS: FUROSEMIDE 40 MG TABLET PO SCH (17:42)
[2019-01-31 20:55] VITALS: BP 129/74
[2019-02-01] VITALS (7 sets, daily range): BP systolic 113–158; BP diastolic 67–86
[2019-02-01] MEDS: PIPERACILLIN/TAZO/PMX 3.375GM 50 ML IV SCH ×3 (01:23→18:49)
[2019-02-01] MEDS: HEPARIN 5,000 UNITS/ML, 1ML SQ SCH ×3 (01:23→17:35)
[2019-02-01] MEDS: LINEZOLID PMX 600MG/300ML 300 ML IV SCH ×2 (02:48→16:39)
[2019-02-01] MEDS: ASPIRIN 81 MG TABLET EC PO SCH (06:16)
[2019-02-01] MEDS: CARVEDILOL 12.5 MG TABLET PO SCH ×2 (06:16→18:51)
[2019-02-01 06:44] LABS: CHLORIDE 113 mmol/L (98-107)
[2019-02-01 06:56] LABS: ANION GAP 5 mmol/L (5-15); CREATININE 1.21 mg/dL (0.7-1.3)
[2019-02-01] MEDS ORDERED: SODIUM POLYSTYRENE SULFONATE ORAL SUSP PO ONE ×2 (09:00→16:00)
[2019-02-01 09:36] LABS: CLOSTRIDIUM DIFFICILE ANTIGEN POSITIVE; CLOSTRIDIUM DIFFICILE TOXIN NEGATIVE (Negative)
[2019-02-01] MEDS: FUROSEMIDE 40 MG TABLET PO SCH (10:28)
[2019-02-01] MEDS ORDERED: AMOX1TAB12 PO (14:37)
[2019-02-01] MEDS ORDERED: LISI5TAB7 PO (14:37)
[2019-02-01] MEDS ORDERED: FURO20TA3 PO (14:37)
[2019-02-02 01:12] VITALS: BP 128/80
[2019-02-02] MEDS: PIPERACILLIN/TAZO/PMX 3.375GM 50 ML IV SCH ×2 (02:16→11:00)
[2019-02-02] MEDS: HEPARIN 5,000 UNITS/ML, 1ML SQ SCH ×2 (02:16→10:09)
[2019-02-02] MEDS: ASPIRIN 81 MG TABLET EC PO SCH (05:32)
[2019-02-02] MEDS: LINEZOLID PMX 600MG/300ML 300 ML IV SCH (05:32)
[2019-02-02] MEDS: CARVEDILOL 12.5 MG TABLET PO SCH (05:33)
[2019-02-02 06:05] LABS: ANION GAP 6 mmol/L (5-15); CALCIUM 8.8 mg/dL (8.5-10.1); CHLORIDE 111 mmol/L (98-107)
[2019-02-02 06:07] LABS: CREATININE 1.19 mg/dL (0.7-1.3)
[2019-02-02 07:09] VITALS: BP 132/78
[2019-02-02] MEDS: FUROSEMIDE 40 MG TABLET PO SCH (10:07)
== END 2019-02-02 16:04 | disposition home or self-care (01) | DRG 603 ==
LOC: ED 19:58 → EDIP 21:28 → 4EST 22:48
PROVIDERS: ADMIT Family Medicine; ATTEND Family Medicine
DX: L03.115 Cellulitis of right lower limb (principal); I50.22 Chronic systolic (congestive) heart failure; N17.9 Acute kidney failure, unspecified; E87.5 Hyperkalemia; F17.210 Nicotine dependence, cigarettes, uncomplicated; I11.0 Hypertensive heart disease with heart failure; T50.2X5A Adverse effect of carbonic-anhydrase inhibitors, benzothiadiazides and other diuretics, initial encounter; Z59.0 Homelessness; Z91.14 Patient's other noncompliance with medication regimen
CPT/HCPCS: 36415; 71045; 80048; 80053; 83735; 83880; 84132; 85025; 87040; 87324; 93005; 96374; 96375; 99285; G0378; J0690; J1644; J1940; J2020; J2543; J3370; J0360; J7040

== ENCOUNTER → 2019-02-05 | Outpatient (CLI) | payer MEDICAID ==
[~2019-02-05] MED LIST changes: +FURO20TA3 PO
== END | disposition home or self-care (01) ==
LOC: WOUND 09:35
PROVIDERS: ATTEND Internal Medicine
DX: I87.333 Chronic venous hypertension (idiopathic) with ulcer and inflammation of bilateral lower extremity (principal); L97.222 Non-pressure chronic ulcer of left calf with fat layer exposed; L97.212 Non-pressure chronic ulcer of right calf with fat layer exposed; I11.0 Hypertensive heart disease with heart failure; I50.23 Acute on chronic systolic (congestive) heart failure; E66.01 Morbid (severe) obesity due to excess calories; F17.210 Nicotine dependence, cigarettes, uncomplicated; Z68.34 Body mass index [BMI] 34.0-34.9, adult
CPT/HCPCS: 97597; 99215

== ENCOUNTER 2019-10-14 05:22 | Inpatient (IN) | payer MEDICARE, MEDICAID ==
[~2019-10-14] VITALS: Ht 188 cm; Wt 127.2 kg
--- NOTE | 2019-10-14 05:50 | NUR ---
Patient brought in by EMS, reports he knew his leg wasnt going to get better. Swelling has worsen per patient report. Weeping noted. No interventions by EMS were done en route. Pt with HX of CHF and kidney failure.
[2019-10-14] MEDS ORDERED: OXYcodone/APAP 10/325MG TABLET ONE (05:56)
[2019-10-14] MEDS ORDERED: OXYcodone/APAP 10/325MG TABLET PO ONE (06:00)
[2019-10-14 06:12] LABS: BASOPHILS # (AUTO) 0.01 x10^3/uL (0-0.1); BASOPHILS % (AUTO) 0 % (0-1); EOSINOPHILS # (AUTO) 0.12 x10^3/uL (0-0.4); EOSINOPHILS % (AUTO) 2 % (1-7); LYMPHOCYTES # (AUTO) 0.73 x10^3/uL (1-3.4); LYMPHOCYTES % (AUTO) 11 % (22-44); MD NO; MEAN CORPUSCULAR HEMOGLOBIN 29.5 pg (27.5-34.5); MEAN CORPUSCULAR HGB CONC 31.7 g/dL (33.2-36.2); MEAN CORPUSCULAR VOLUME 93.1 fL (81-97); MEAN PLATELET VOLUME 7.7 fL (7.4-10.4); MONOCYTES # (AUTO) 0.38 x10^3/uL (0.2-0.8); MONOCYTES % (AUTO) 6 % (2-9); NEUTROPHILS # (AUTO) 5.28 x10^3/uL (1.8-6.8); NEUTROPHILS % (AUTO) 81 % (42-75); PLATELET COUNT 224 x10^3/uL (130-400); RED BLOOD COUNT 4.03 x10^6/uL (4.38-5.82); RED CELL DISTRIBUTION WIDTH 15.8 % (9.4-14.8)
--- NOTE | 2019-10-14 06:17 | NUR ---
Bedside ultrasound being completed. EKG given to provider, Labs pending. portable CXR completed.
[2019-10-14 06:20] LABS: ALANINE AMINOTRANSFERASE 36 U/L (12-78); ALBUMIN 2.6 g/dL (3.4-5.0); ANION GAP 7 mmol/L (5-15); CALCIUM 8.4 mg/dL (8.5-10.1); CHLORIDE 115 mmol/L (98-107); CREATININE 1.71 mg/dL (0.7-1.3)
[2019-10-14 06:24] LABS: ALKALINE PHOSPHATASE 78 U/L (45-117); BILIRUBIN,TOTAL 0.4 mg/dL (0.2-1.0); TOTAL PROTEIN 6.6 g/dL (6.4-8.2); TROPONIN I 0.049 ng/mL (0.000-0.045)
--- NOTE | 2019-10-14 06:58 | NUR ---
report received from beatris escobar.
--- NOTE | 2019-10-14 07:52 | NUR ---
pt sleeping in [facility]. resps even and unlabored. call light within reach.
[2019-10-14] MEDS ORDERED: METO25TA35 PO (08:05)
[2019-10-14] MEDS ORDERED: LISI-170 PO (08:06)
[2019-10-14] MEDS ORDERED: SPIR25TA5 PO (08:06)
[2019-10-14] MEDS ORDERED: FURO20TA3 PO (08:07)
[2019-10-14] MEDS ORDERED: AMPICILLIN/SULBACTAM 3 GM in SODIUM CHLORIDE 0.9% 100 ML IV ONE (08:30)
--- NOTE | 2019-10-14 08:40 | NUR ---
abx infusing at this time. pt tolerated well.
--- NOTE | 2019-10-14 08:51 | NUR ---
report given to nolan escobar. all questions answered.
[2019-10-14] MEDS ORDERED: ONDANSETRON 2MG/ML, 2ML IVPush PRN (09:00)
[2019-10-14] MEDS ORDERED: LABETALOL 5MG/ML, 20ML IVPush PRN (09:00)
[2019-10-14] MEDS ORDERED: NITROGLYCERIN 0.4 MG BOTTLE (25 TABS) SL PRN (09:00)
[2019-10-14] MEDS ORDERED: hydrALAzine 20 MG/ML, 1ML IVPush PRN (09:00)
[2019-10-14] MEDS ORDERED: PROMETHAZINE 25 MG/ML, 1ML IM PRN (09:00)
[2019-10-14] MEDS ORDERED: morphine SULFATE 10 MG/ML, 1ML IVPush PRN (09:00)
[2019-10-14] MEDS: ASPIRIN 325 MG TABLET EC PO SCH (10:19)
[2019-10-14] MEDS: METOPROLOL TARTRATE 25 MG TABLET PO SCH (10:19)
[2019-10-14] MEDS: HEPARIN 5,000 UNITS/ML, 1ML SQ SCH ×2 (10:20→18:14)
[2019-10-14 10:38] LABS: TROPONIN I 0.048 ng/mL (0.000-0.045)
[2019-10-14] MEDS: OXYcodone/APAP 5/325MG TABLET PO PRN ×2 (11:47→18:15)
[2019-10-14 11:48] VITALS: BP 117/84
[2019-10-14 13:41] VITALS: BP 108/76
[2019-10-14 15:10] LABS: TROPONIN I 0.055 ng/mL (0.000-0.045)
[2019-10-14] MEDS: FUROSEMIDE 40 MG/4 ML IV SCH (17:22)
[2019-10-14] MEDS: NICOTINE 7 MG/24 HR PATCH.TD24 TD SCH (18:14)
[2019-10-14 19:42] VITALS: BP 120/80
[2019-10-14] MEDS: ATORVASTATIN 40 MG TABLET PO SCH (20:25)
[2019-10-14 22:07] LABS: TROPONIN I 0.051 ng/mL (0.000-0.045)
[2019-10-15] MEDS: HEPARIN 5,000 UNITS/ML, 1ML SQ SCH ×3 (01:38→16:51)
[2019-10-15 01:46] VITALS: BP 115/79
[2019-10-15 05:07] LABS: BASOPHILS # (AUTO) 0.01 x10^3/uL (0-0.1); BASOPHILS % (AUTO) 0 % (0-1); EOSINOPHILS # (AUTO) 0.16 x10^3/uL (0-0.4); EOSINOPHILS % (AUTO) 4 % (1-7); LYMPHOCYTES # (AUTO) 0.75 x10^3/uL (1-3.4); LYMPHOCYTES % (AUTO) 19 % (22-44); MD NO; MEAN CORPUSCULAR HGB CONC 31.7 g/dL (33.2-36.2); MEAN CORPUSCULAR VOLUME 91.3 fL (81-97); MEAN PLATELET VOLUME 7.9 fL (7.4-10.4); MONOCYTES # (AUTO) 0.44 x10^3/uL (0.2-0.8); MONOCYTES % (AUTO) 11 % (2-9); NEUTROPHILS # (AUTO) 2.54 x10^3/uL (1.8-6.8); NEUTROPHILS % (AUTO) 65 % (42-75); PLATELET COUNT 181 x10^3/uL (130-400); RED BLOOD COUNT 3.63 x10^6/uL (4.38-5.82); RED CELL DISTRIBUTION WIDTH 15.5 % (9.4-14.8)
[2019-10-15 05:14] LABS: ALBUMIN 2.4 g/dL (3.4-5.0); ANION GAP 6 mmol/L (5-15); CALCIUM 8.2 mg/dL (8.5-10.1); CHLORIDE 115 mmol/L (98-107)
[2019-10-15 05:18] LABS: ALANINE AMINOTRANSFERASE 30 U/L (12-78); ALKALINE PHOSPHATASE 65 U/L (45-117); BILIRUBIN,TOTAL 0.6 mg/dL (0.2-1.0); CREATININE 1.65 mg/dL (0.7-1.3)
[2019-10-15] MEDS: OXYcodone/APAP 5/325MG TABLET PO PRN ×3 (05:28→17:59)
[2019-10-15 07:07] VITALS: BP 116/85
[2019-10-15] MEDS: FUROSEMIDE 40 MG/4 ML IV SCH ×2 (07:36→16:51)
[2019-10-15 08:24] VITALS: BP 114/81
[2019-10-15] MEDS: METOPROLOL TARTRATE 25 MG TABLET PO SCH (08:25)
[2019-10-15] MEDS: ASPIRIN 325 MG TABLET EC PO SCH (08:25)
[2019-10-15 13:11] VITALS: BP 103/71
[2019-10-15 16:50] VITALS: BP 102/75
[2019-10-15] MEDS: NICOTINE 7 MG/24 HR PATCH.TD24 TD SCH (16:54)
[2019-10-15 19:34] VITALS: BP 105/66
[2019-10-15] MEDS: ATORVASTATIN 40 MG TABLET PO SCH (20:07)
[2019-10-16] MEDS: HEPARIN 5,000 UNITS/ML, 1ML SQ SCH ×3 (01:48→18:09)
[2019-10-16 02:02] VITALS: BP 106/76
[2019-10-16 07:42] LABS: BASOPHILS # (AUTO) 0.02 x10^3/uL (0-0.1); BASOPHILS % (AUTO) 1 % (0-1); EOSINOPHILS # (AUTO) 0.15 x10^3/uL (0-0.4); EOSINOPHILS % (AUTO) 3 % (1-7); LYMPHOCYTES # (AUTO) 0.73 x10^3/uL (1-3.4); LYMPHOCYTES % (AUTO) 17 % (22-44); MD NO; MEAN CORPUSCULAR HGB CONC 31.8 g/dL (33.2-36.2); MEAN CORPUSCULAR VOLUME 91.2 fL (81-97); MEAN PLATELET VOLUME 7.3 fL (7.4-10.4); MONOCYTES # (AUTO) 0.43 x10^3/uL (0.2-0.8); MONOCYTES % (AUTO) 10 % (2-9); NEUTROPHILS # (AUTO) 2.97 x10^3/uL (1.8-6.8); NEUTROPHILS % (AUTO) 69 % (42-75); PLATELET COUNT 168 x10^3/uL (130-400); RED BLOOD COUNT 3.75 x10^6/uL (4.38-5.82); RED CELL DISTRIBUTION WIDTH 15.3 % (9.4-14.8)
[2019-10-16 07:50] LABS: ALANINE AMINOTRANSFERASE 28 U/L (12-78); ALBUMIN 2.3 g/dL (3.4-5.0); ANION GAP 5 mmol/L (5-15); CHLORIDE 114 mmol/L (98-107); CREATININE 1.65 mg/dL (0.7-1.3)
[2019-10-16 07:52] LABS: ALKALINE PHOSPHATASE 65 U/L (45-117); BILIRUBIN,TOTAL 0.4 mg/dL (0.2-1.0); TOTAL PROTEIN 6.1 g/dL (6.4-8.2)
[2019-10-16 08:23] VITALS: BP 117/84
[2019-10-16] MEDS: FUROSEMIDE 40 MG/4 ML IV SCH ×2 (09:14→18:09)
[2019-10-16] MEDS: ASPIRIN 325 MG TABLET EC PO SCH (09:14)
[2019-10-16] MEDS: METOPROLOL TARTRATE 25 MG TABLET PO SCH (09:15)
[2019-10-16 14:24] VITALS: BP 116/79
[2019-10-16] MEDS: OXYcodone/APAP 5/325MG TABLET PO PRN ×2 (14:45→21:01)
[2019-10-16] MEDS: NICOTINE 7 MG/24 HR PATCH.TD24 TD SCH (18:10)
[2019-10-16] MEDS: ATORVASTATIN 40 MG TABLET PO SCH (21:01)
[2019-10-16 21:05] VITALS: BP 125/75
[2019-10-17] MEDS: HEPARIN 5,000 UNITS/ML, 1ML SQ SCH ×3 (01:35→18:18)
[2019-10-17 01:36] VITALS: BP 123/84
[2019-10-17] MEDS: CEFAZOLIN PMX 1GM/50ML 50 ML IV SCH ×3 (05:17→21:36)
[2019-10-17] MEDS: ASPIRIN 325 MG TABLET EC PO SCH (05:18)
[2019-10-17 07:32] VITALS: BP 112/75
[2019-10-17 08:03] LABS: ANION GAP 5 mmol/L (5-15); CALCIUM 8.3 mg/dL (8.5-10.1); CHLORIDE 114 mmol/L (98-107); CREATININE 1.62 mg/dL (0.7-1.3)
[2019-10-17] MEDS ORDERED: REGADENOSON 0.4 MG/5 ML SYRINGE ONE (08:07)
[2019-10-17] MEDS: METOPROLOL TARTRATE 25 MG TABLET PO SCH (12:22)
[2019-10-17] MEDS: FUROSEMIDE 40 MG/4 ML IV SCH ×2 (12:23→18:19)
[2019-10-17 13:39] VITALS: BP 119/79
[2019-10-17] MEDS: OXYcodone/APAP 5/325MG TABLET PO PRN ×2 (14:39→21:37)
[2019-10-17] MEDS: NICOTINE 7 MG/24 HR PATCH.TD24 TD SCH (18:18)
[2019-10-17 19:01] VITALS: BP 118/86
[2019-10-17] MEDS: ATORVASTATIN 40 MG TABLET PO SCH (21:36)
[2019-10-18 00:51] VITALS: BP 120/84
[2019-10-18] MEDS: HEPARIN 5,000 UNITS/ML, 1ML SQ SCH ×2 (01:14→09:03)
[2019-10-18] MEDS: CEFAZOLIN PMX 1GM/50ML 50 ML IV SCH ×2 (05:24→13:02)
[2019-10-18] MEDS: ASPIRIN 325 MG TABLET EC PO SCH (05:24)
[2019-10-18 05:36] LABS: ANION GAP 4 mmol/L (5-15); CALCIUM 8.1 mg/dL (8.5-10.1); CHLORIDE 112 mmol/L (98-107)
[2019-10-18 08:31] VITALS: BP 137/96
[2019-10-18] MEDS: FUROSEMIDE 40 MG/4 ML IV SCH (09:02)
[2019-10-18] MEDS: METOPROLOL TARTRATE 25 MG TABLET PO SCH (09:03)
[2019-10-18] MEDS ORDERED: POTA20PA25 PO (13:03)
[2019-10-18] MEDS ORDERED: FURO40TA6 PO (13:03)
[2019-10-18] MEDS ORDERED: ATOR40TA78 PO (13:03)
[2019-10-18] MEDS ORDERED: NICO-485 TD (13:03)
[2019-10-18] MEDS ORDERED: METO50TA82 PO ×2 (13:03)
[2019-10-18] MEDS ORDERED: CEPH-368 PO (13:03)
[2019-10-18] MEDS ORDERED: ASPI-496 PO (13:07)
[2019-10-18] MEDS: OXYcodone/APAP 5/325MG TABLET PO PRN (13:21)
[2019-10-18 14:50] VITALS: BP 122/87
[2019-10-18] MEDS ORDERED: ISOS30TA8 PO (16:05)
[2019-10-18] MEDS ORDERED: METO-93 PO (16:05)
[2019-10-18] MEDS ORDERED: HYDR-3342 PO (16:05)
== END 2019-10-18 18:03 | disposition home or self-care (01) | DRG 602 ==
LOC: ED 06:11 → EDIP 08:32 → 5SO 09:14
PROVIDERS: ADMIT Internal Medicine; ATTEND Internal Medicine
DX: L03.115 Cellulitis of right lower limb (principal); I50.23 Acute on chronic systolic (congestive) heart failure; I13.0 Hypertensive heart and chronic kidney disease with heart failure and stage 1 through stage 4 chronic kidney disease, or unspecified chronic kidney disease; I24.8 Other forms of acute ischemic heart disease; N17.9 Acute kidney failure, unspecified; E87.2 Acidosis; N18.9 Chronic kidney disease, unspecified; E11.22 Type 2 diabetes mellitus with diabetic chronic kidney disease; I27.20 Pulmonary hypertension, unspecified; B95.61 Methicillin susceptible Staphylococcus aureus infection as the cause of diseases classified elsewhere; D64.9 Anemia, unspecified; E66.01 Morbid (severe) obesity due to excess calories; E88.09 Other disorders of plasma-protein metabolism, not elsewhere classified; I35.8 Other nonrheumatic aortic valve disorders; I37.1 Nonrheumatic pulmonary valve insufficiency; J45.909 Unspecified asthma, uncomplicated; Z91.14 Patient's other noncompliance with medication regimen; Z68.36 Body mass index [BMI] 36.0-36.9, adult
CPT/HCPCS: 36415; 71045; 78452; 80048; 80053; 83735; 83880; 84100; 84145; 84484; 85025; 87040; 87070; 87077; 87186; 87205; 93005; 93017; 93306; 96374; G0378; J0295; J0690; J1644; J1940; J2785; A9502; C9898

== ENCOUNTER 2019-11-07 20:07 | Emergency (ER) | payer MEDICARE, MEDICAID ==
[~2019-11-07] VITALS: Ht 188 cm; Wt 125.0 kg
[~2019-11-07 20:07] MED LIST changes: +ASPI-496 PO; +ATOR40TA78 PO; +CEPH-368 PO; +HYDR-3342 PO; +ISOS30TA8 PO; +LISI-170 PO; +METO-93 PO; +METO25TA35 PO; +METO50TA82 PO; +NICO-485 TD; +POTA20PA25 PO; +SPIR25TA5 PO
--- NOTE | 2019-11-07 20:42 | NUR ---
PT TO LOBBY, WAIT TIME EXPLAINED.
[2019-11-07 22:24] VITALS: BP 135/76
--- NOTE | 2019-11-07 22:27 | NUR ---
PT STILL IN WAITING, VS RECHECKED.
[2019-11-07 23:36] LABS: BASOPHILS % (AUTO) 0 % (0-1); EOSINOPHILS # (AUTO) 0.07 x10^3/uL (0-0.4); EOSINOPHILS % (AUTO) 1 % (1-7); LYMPHOCYTES # (AUTO) 0.66 x10^3/uL (1-3.4); LYMPHOCYTES % (AUTO) 10 % (22-44); MD NO; MEAN CORPUSCULAR HEMOGLOBIN 27.2 pg (27.5-34.5); MEAN CORPUSCULAR HGB CONC 30.9 g/dL (33.2-36.2); MEAN PLATELET VOLUME 6.7 fL (7.4-10.4); MONOCYTES # (AUTO) 0.47 x10^3/uL (0.2-0.8); MONOCYTES % (AUTO) 7 % (2-9); NEUTROPHILS # (AUTO) 5.51 x10^3/uL (1.8-6.8); NEUTROPHILS % (AUTO) 82 % (42-75); PLATELET COUNT 268 x10^3/uL (130-400); RED BLOOD COUNT 4.07 x10^6/uL (4.38-5.82); RED CELL DISTRIBUTION WIDTH 15.9 % (9.4-14.8)
[2019-11-07 23:44] LABS: CHLORIDE 113 mmol/L (98-107)
[2019-11-07 23:45] LABS: ALANINE AMINOTRANSFERASE 39 U/L (12-78); ALBUMIN 2.8 g/dL (3.4-5.0); ANION GAP 6 mmol/L (5-15); CALCIUM 8.6 mg/dL (8.5-10.1); CREATININE 1.36 mg/dL (0.7-1.3)
[2019-11-07 23:47] LABS: ALKALINE PHOSPHATASE 73 U/L (45-117); BILIRUBIN,TOTAL 0.4 mg/dL (0.2-1.0); TOTAL PROTEIN 7.2 g/dL (6.4-8.2)
--- NOTE | 2019-11-08 00:50 | NUR ---
PT CLOTHING HAS BEEN REMOVED FOR BETTER ASSESSMENT OF LOWER EXTREMITIES. PT PLACED ON BEDPAN. DRESSING ON PT LOWER RIGHT LEG DATED 11/01/2019. THESE DRESSING REMOVED THEY ARE SATURATED WITH DRIED BLOOD. BEDSIDE US DONE. WILL CONTINUE TO MONITOR. BILAT BEDRAILS UP.
--- NOTE | 2019-11-08 01:10 | NUR ---
PT ABLE TO HAVE BOWEL MOVEMENT WITH BEDPAN. PT ROLLING BACK AND FORTH IN BED, SATED HE IS HAVING PAIN IN RIGHT LOWER LEG
--- NOTE | 2019-11-08 01:13 | NUR ---
REPORT FROM [facility] ASSUN[facility]ARE OF PT
[2019-11-08] MEDS ORDERED: HYDROcodone/APAP 10/325 MG TABLET ONE (01:14)
[2019-11-08] MEDS ORDERED: HYDROcodone/APAP 10/325 MG TABLET PO ONE (01:30)
== END 2019-11-08 03:31 | disposition home or self-care (01) ==
LOC: ED 23:40
DX: I87.2 Venous insufficiency (chronic) (peripheral) (principal); I11.0 Hypertensive heart disease with heart failure; I50.9 Heart failure, unspecified; F17.200 Nicotine dependence, unspecified, uncomplicated
CPT/HCPCS: 36415; 80053; 83605; 84145; 85025; 87040; 99284